=== PATIENT | female | born 1975 | race Caucasian/White ===

== ENCOUNTER 2016-12-17 20:03 | Emergency (ER) | payer MEDICARE, MEDICAID ==
[2016-12-17] MEDS ORDERED: KETOROLAC 30 MG/ML VIAL IVP ONE (21:03)
[2016-12-17 21:49] LABS: BASO % 0.6 % (0-6); GRAN % 60.9 % (47-80); HEMATOCRIT 28.4 % (35.0-47.0); HEMOGLOBIN 8.6 gm/dl (11.6-16.0); LYMPH % 30.4 % (16-45); MEAN CELL VOLUME 74.3 fl (81-97); MEAN CORPUSCULAR HEMOGLOBIN 22.5 pg (27-33); MEAN CORPUSCULAR HGB CONC 30.3 g/dl (32-36); MEAN PLATELET VOLUME 10.7 fl (7.4-10.4); MONO % 6.1 % (0-9); PLATELET COUNT 263 K/uL (130-400); RED BLOOD COUNT 3.82 M/uL (3.80-5.40); WHITE BLOOD COUNT W/O DIFF 10.6 K/uL (4.2-12.2)
[2016-12-17 22:03] LABS: ALB/GLOB RATIO 1.4 (1.1-1.8); ALKALINE PHOSPHATASE 122 U/L (38-126); ALT/SGPT 36 U/L (9-52); ANION GAP 9.3 (7-16); AST/SGOT 13 U/L (14-36); BILIRUBIN,TOTAL 0.29 mg/dL (0.2-1.3); BLOOD UREA NITROGEN 17 mg/dL (7-17); C-REACTIVE PROTEIN 1.2 mg/dL (0.0-0.9); CARBON DIOXIDE 23.7 mmol/L (22-30); CREATININE 0.9 mg/dL (0.52-1.04); EST GLOMERULAR FILTRATION RATE > 60 ml/min; GLUCOSE,RANDOM 109 mg/dL (70-110); TOTAL PROTEIN 6.8 gm/dL (6.3-8.2)
[2016-12-17 22:24] LABS: ERYTHROCYTE SEDIMENTATION RATE 30 mm/hr (0-20)
[2016-12-17] MEDS ORDERED: DIPHENHYDRAMINE HCL IV 50 MG/ML VIAL IVP ONE (22:25)
[2016-12-17] MEDS ORDERED: ASPIRIN 81 MG CHEWABLE TABLET PO ONE (22:51)
[2016-12-17] MEDS ORDERED: HYDROCODONE/APAP 5/325MG TABLET PO ONE (22:51)
--- NOTE | 2016-12-17 23:04 | Emergency Department Record ---
History of Present Illness - General Chief complaint: Lower Extremity Pain Stated complaint: RT FOOT TOES PURPLE Time Seen by Provider: 12/17/16 20:48 Source: Patient Mode of Arrival: Ambulatory Limitations: No limitations - History of Present Illness Initial comments: toes on r foot are discolored and painful. pt recently kalen dudley lupus Complaint: Extremity pain Onset/Timin -: Days(s) Location: Right, Foot History of Same: No Radiation: None Severity scale (1-10): 8 Quality: Burning Consistency: Constant Improves with: Nothing Worsens with: Walking, Weight bearing Associated Symptoms: Denies other symptoms - Related Data Home Medications Medication Instructions Recorded Confirmed Last Taken Buspirone HCl [Buspar] 15 mg PO DAILY 12/17/16 12/17/16 Unknown Dicyclomine HCl 20 mg PO QID 12/17/16 12/17/16 Unknown Fluoxetine HCl [Prozac] 10 mg PO DAILY 12/17/16 12/17/16 Unknown Hydrocodone/Acetaminophen 1 tab PO BID PRN 12/17/16 12/17/16 Unknown [Hydrocodone/Acetaminophen 7.5mg/325mg] Lisinopril/Hydrochlorothiazide 1 each PO BID 12/17/16 12/17/16 Unknown [Lisinopril-Hctz 20-12.5 mg Tab] Olanzapine [Olanzapine] 5 mg PO DAILY 12/17/16 12/17/16 Unknown Omeprazole [Omeprazole] 40 mg PO DAILY 12/17/16 12/17/16 Unknown Ondansetron HCl [Zofran] 4 mg PO ASDIR PRN 12/17/16 12/17/16 12/17/16 Pregabalin [Lyrica] 50 mg PO BID 12/17/16 12/17/16 Unknown Previous Rx's Medication Instructions Recorded Hydrocodone/Acetaminophen [Campbell 1 each PO Q6HR #7 tablet 12/17/16 5-325 Tablet] Allergies Allergy/AdvReac Type Severity Reaction Status Date / Time morphine Allergy ITCHING Verified 12/17/16 20:11 haloperidol [From Haldol] AdvReac FATIGUE Verified 12/17/16 20:11 haloperidol lactate AdvReac FATIGUE Verified 12/17/16 20:11 [From Haldol] Travel Screening - Travel/Exposure Within Last 30 Days Have you traveled within the last 30 days?: Yes Location Detail:: [place] - Travel/Exposure Within Last Year Have you traveled outside the [place] in the last year?: No - Additonal Travel Details Have you been exposed to anyone with a communicable illness?: No - Travel Symptoms Symptom Screening: None Review of Systems Reviewed: No additional complaints except as noted below Constitutional: Reports: As per HPI. Denies: Chills, Fever, Malaise, Night sweats, Weakness, Weight change Eyes: Reports: As per HPI. Denies: Eye discharge, Eye pain, Photophobia, Vision change ENT: Reports: As per HPI. Denies: Congestion, Dental pain, Ear pain, Epistaxis , Hearing loss, Throat pain Respiratory: Reports: As per HPI. Denies: Cough, Dyspnea, Hemoptysis, Stridor, Wheezes Cardiovascular: Reports: As per HPI. Denies: Arrhythmia, Chest pain, Dyspnea on exertion, Edema, Murmurs, Orthopnea, Palpitations, Paroxysmal nocturnal dyspnea, Rheumatic Fever, Syncope Endocrine: Reports: As per HPI. Denies: Fatigue, Heat or cold intolerance, Polydipsia, Polyuria Gastrointestinal: Reports: As per HPI. Denies: Abdominal pain, Constipation, Diarrhea, Hematemesis, Hematochezia, Melena, Nausea, Vomiting Genitourinary: Reports: As per HPI. Denies: Abnormal menses, Discharge, Dyspareunia, Dysuria, Frequency, Hematuria, Incontinence, Retention, Urgency Musculoskeletal: Reports: As per HPI. Denies: Arthralgia, Back pain, Gout, Joint swelling, Myalgia, Neck pain Skin: Reports: As per HPI. Denies: Bruising, Change in color, Change in hair/ nails, Lesions, Pruritus, Rash Neurological: Reports: As per HPI. Denies: Abnormal gait, Confusion, Headache, Numbness, Paresthesias, Seizure, Tingling, Tremors, Vertigo, Weakness Psychiatric: Reports: As per HPI. Denies: Anxiety, Auditory hallucinations, Depression, Homicidal thoughts, Suicidal thoughts, Visual hallucinations Hematological/Lymphatic: Reports: As per HPI. Denies: Anemia, Blood Clots, Easy bleeding, Easy bruising, Swollen glands Past Medical History - SOCIAL HISTORY Smoking Status: Light tobacco smoker (<10/day) Alcohol Use: Occasional Drug Use: Heavy Drug Use Detail:: Marijuana - RESPIRATORY Hx Respiratory Disorders: Yes Hx Asthma: Yes - CARDIOVASCULAR Hx Cardio Disorders: Yes Hx Hypertension: Yes - NEURO Hx Neuro Disorders: Yes Hx Headaches: Yes (migraines since age 18) - GI Hx GI Disorders: No - Hx Genitourinary Disorders: Yes Hx Bladder Problem: Yes - ENDOCRINE Hx Endocrine Disorders: No - MUSCULOSKELETAL Hx Musculoskeletal Disorders: Yes Hx Arthritis: Yes - PSYCH Hx Psych Problems: Yes Hx Anxiety: Yes - HEMATOLOGY/ONCOLOGY Hx Hematology/Oncology Disorders: Yes 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) Hx Blood Transfusions: Yes Hx Blood Transfusion Reaction: No Family Medical History Any Significant Family History?: No Hx Anxiety: Mother Hx Cancer: Mother, Grandparents Hx Depression: Mother Hx Diabetes: Mother, Grandparents Hx Heart Disease: Father, Mother, Grandparents Hx HTN: Father, Mother, Grandparents Hx Stroke: Father, Grandparents Physical Exam - General General Appearance: Alert, Oriented x3, Cooperative, Mild distress - Head Head exam: Normal inspection - Eye Eye exam: Normal appearance, PERRL, EOMI Pupils: Normal accommodation - ENT ENT exam: Normal exam, Mucous membranes moist, Normal external ear exam, Normal orophraynx Ear exam: Normal external inspection. negative: External canal tenderness Nasal Exam: Normal inspection. negative: Discharge, Sinus tenderness Mouth exam: Normal external inspection, Tongue normal Teeth exam: Normal inspection. negative: Dental caries Throat exam: Normal inspection. negative: Tonsillar erythema, Tonsillar exudate - Neck Neck exam: Normal inspection, Full ROM. negative: Tenderness - Respiratory Respiratory exam: Normal lung sounds bilaterally. negative: Respiratory distress - Cardiovascular Cardiovascular Exam: Regular rate, Normal rhythm, Normal heart sounds - GI/Abdominal GI/Abdominal exam: Soft, Normal bowel sounds. negative: Tenderness - Rectal Rectal exam: Deferred - exam: Deferred - Extremities Extremities exam: Normal inspection, Full ROM, Tenderness Image of Feet: 1 - discoloration and tenderness - Back Back exam: Reports: Normal inspection, Full ROM. Denies: Muscle spasm, Rash noted, Tenderness - Neurological Neurological exam: Alert, CN II-XII intact, Normal gait, Oriented X3 - Psychiatric Psychiatric exam: Normal affect, Normal mood - Skin Skin exam: Dry, Intact, Normal color, Warm Course Vital Signs 12/17/16 20:10 Temperature 98.9 F Pulse Rate [ 106 H Pulse Ox Probe] Respiratory 20 Rate Blood Pressure 132/88 [Left Arm] Pulse Ox 98 Medical Decision Making - Lab Data Result diagrams: 12/17/16 21:45 12/17/16 21:45 Lab Results 12/17/16 12/17/16 12/17/16 Range/Units 21:45 21:45 21:45 WBC 10.6 (4.2-12.2) K/uL RBC 3.82 (3.80-5.40) M/uL Hgb 8.6 L (11.6-16.0) gm/dl Hct 28.4 L (35.0-47.0) % MCV 74.3 L (81-97) fl MCH 22.5 L (27-33) pg MCHC 30.3 L (32-36) g/dl RDW 19.0 H (11.5-14.5) % Plt Count 263 (130-400) K/uL MPV 10.7 H (7.4-10.4) fl Gran % 60.9 (47-80) % Lymphocytes % 30.4 (16-45) % Monocytes % 6.1 (0-9) % Eosinophils % 2.0 (0-6) % Basophils % 0.6 (0-6) % ESR 30 H (0-20) mm/hr D-Dimer 2.48 H (0-0.59) mg/L FEU Sodium 142 (136-145) mmol/L Potassium 3.7 (3.5-5.1) mmol/L Chloride 109 H (98-107) mmol/L Carbon Dioxide 23.7 (22-30) mmol/L Anion Gap 9.3 (7-16) BUN 17 (7-17) mg/dL Creatinine 0.9 (0.52-1.04) mg/dL Estimated GFR > 60 ml/min Random Glucose 109 (70-110) mg/dL Calcium 8.5 (8.5-10.1) mg/dL Total Bilirubin 0.29 (0.2-1.3) mg/dL AST 13 L (14-36) U/L ALT 36 (9-52) U/L Alkaline Phosphatase 122 (38-126) U/L C-Reactive Protein 1.2 H (0.0-0.9) mg/dL Total Protein 6.8 (6.3-8.2) gm/dL Albumin 4.0 (3.5-5.0) gm/dL Globulin 2.8 (1.4-4.8) gm/dL Albumin/Globulin Ratio 1.4 (1.1-1.8) Disposition Disposition: Discharge Clinical Impression: Thromboangiitis obliterans Anemia Qualifiers: Anemia type: iron deficiency Iron deficiency anemia type: unspecified iron deficiency Qualified Code(s): D50.9 - Iron deficiency anemia, unspecified Disposition: Home, Self-Care Condition: (2) Stable Instructions: Peripheral Vascular Disease (ED), Anemia (ED) Additional Instructions: follow 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 return sooner if worse. moist heat to feet. take aspirin 81mg a day Prescriptions: Hydrocodone/Acetaminophen [Campbell 5-325 Tablet] 1 each PO Q6HR #7 tablet Forms: Patient Portal Access Quality - Quality Measures Quality Measures: N/A - Blood Pressure Screening Does Patient Have Any of the Following: No Blood Pressure Classification: Pre-Hypertensive BP Reading Systolic Measurement: 132 Diastolic Measurement: 88 Screening for High Blood Pressure: < Pre-Hypertensive BP, F/U Documented > [ G8950] Pre-Hypertensive Follow-up Interventions: Follow-up with rescreen every year.
--- NOTE | 2016-12-18 12:40 | RADIOLOGY REPORT ---
EXAM: RIGHT FOOT COMPLETE HISTORY: DIFFUSE RIGHT FOOT PAIN ESPECIALLY IN THE FIRST AND FOURTH DIGITS. NO KNOWN INJURY. TECHNIQUE: Three views of the right foot were obtained. Comparison: None. Encounter: Initial. FINDINGS: There is normal bone mineralization. No acute fracture, dislocation , or destructive bone lesion is seen. The articular relations are maintained. A small plantar calcaneal spur is present. No suspicious focal soft tissue abnormality. IMPRESSION: NO ACUTE BONE NOR JOINT ABNORMALITY. SMALL PLANTAR CALCANEAL SPUR. JOB NUMBER: [id number] [facility]
== END 2016-12-17 23:21 | disposition home or self-care (01) ==
LOC: ER 20:03
DX: I73.1 Thromboangiitis obliterans [Buerger's disease] (principal); M79.671 Pain in right foot; D50.9 Iron deficiency anemia, unspecified; I10 Essential (primary) hypertension; F17.210 Nicotine dependence, cigarettes, uncomplicated
CPT/HCPCS: 99284 ×2; 96374; 96375; 85025; 85651; 86140; 80053; 85379; 73630; J1885; J1200

== ENCOUNTER 2018-01-02 14:55 | Emergency (ER) | payer MEDICARE, MEDICAID ==
[2018-01-02] MEDS ORDERED: ACETAMINOPHEN 325 MG TAB PO ONE (15:09)
--- NOTE | 2018-01-02 15:16 | Emergency Department Record ---
History of Present Illness - General Chief complaint: ENT Stated complaint: SORE THROAT, SLEEPS ALL THE TIME Time Seen by Provider: 01/02/18 15:06 Source: Patient Mode of Arrival: Ambulatory Limitations: No limitations - History of Present Illness Initial comments: The patient is here for a ST for 2 days. She also feels fatigued for a few days and has been sleeping a lot. The patient denies any fever, chills, vomiting, diarrhea, or HERNANDEZ's. complaint: Sore throat Onset/Timin -: Days(s) Location: Throat Severity: Moderate Severity scale (1-10): 8 Consistency: Constant Improves with: None Worsens with: Swallowing Associated Symptoms: Sore throat - Related Data Previous Rx's Medication Instructions Recorded Potassium Chloride 20 meq PO DAILY #7 [email or web address].prt 01/02/18 Allergies Allergy/AdvReac Type Severity Reaction Status Date / Time morphine Allergy ITCHING Verified 01/02/18 14:59 haloperidol [From Haldol] AdvReac FATIGUE Verified 01/02/18 14:59 haloperidol lactate AdvReac FATIGUE Verified 01/02/18 14:59 [From Haldol] Travel Screening - Travel/Exposure Within Last 30 Days Have you traveled within the last 30 days?: No - Travel/Exposure Within Last Year Have you traveled outside the [place] in the last year?: No - Additonal Travel Details Have you been exposed to anyone with a communicable illness?: No - Travel Symptoms Symptom Screening: None Review of Systems Constitutional: Reports: Malaise. Denies: Chills, Fever Eyes: Denies: Eye discharge ENT: Denies: Congestion Respiratory: Denies: Cough, Dyspnea Past Medical History - SOCIAL HISTORY Smoking Status: Light tobacco smoker (<10/day) Alcohol Use: Occasional Drug Use: None - RESPIRATORY Hx Respiratory Disorders: Yes Hx Asthma: Yes - CARDIOVASCULAR Hx Cardio Disorders: Yes Hx Hypertension: Yes - NEURO Hx Neuro Disorders: Yes Hx Headaches: Yes (migraines since age 18) - GI Hx GI Disorders: No - Hx Genitourinary Disorders: Yes Hx Bladder Problem: Yes - ENDOCRINE Hx Endocrine Disorders: No - MUSCULOSKELETAL Hx Musculoskeletal Disorders: Yes Hx Arthritis: Yes - PSYCH Hx Psych Problems: Yes Hx Anxiety: Yes - HEMATOLOGY/ONCOLOGY Hx Hematology/Oncology Disorders: Yes 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) Hx Blood Transfusions: Yes Hx Blood Transfusion Reaction: No Family Medical History Any Significant Family History?: Yes Hx Anxiety: Mother Hx Cancer: Mother, Grandparents Hx Depression: Mother Hx Diabetes: Mother, Grandparents Hx Heart Disease: Father, Mother, Grandparents Hx HTN: Father, Mother, Grandparents Hx Stroke: Father, Grandparents Physical Exam - General General Appearance: Alert, Oriented x3, Cooperative, No acute distress - Head Head exam: Atraumatic, Normocephalic, Normal inspection - Eye Eye exam: Normal appearance, PERRL, EOMI - ENT ENT exam: Normal exam, Mucous membranes moist, Normal external ear exam, Normal orophraynx, TM's normal bilaterally Throat exam: Normal inspection. negative: Tonsillar erythema, Tonsillomegaly, Tonsillar exudate, R peritonsillar mass, L peritonsillar mass - Neck Neck exam: Normal inspection, Full ROM. negative: Lymphadenopathy, Meningismus , Tenderness - Respiratory Respiratory exam: Normal lung sounds bilaterally. negative: Respiratory distress - Cardiovascular Cardiovascular Exam: Regular rate, Normal rhythm, Normal heart sounds - GI/Abdominal GI/Abdominal exam: Soft, Normal bowel sounds. negative: Tenderness - Extremities Extremities exam: Normal inspection, Full ROM, Normal capillary refill. negative: Tenderness - Back Back exam: Reports: Normal inspection - Neurological Neurological exam: Alert, Normal gait, Oriented X3. negative: Abnormal gait, Motor sensory deficit Course Vital Signs 01/02/18 15:01 Temperature 98.2 F Pulse Rate 98 H Respiratory 20 Rate Blood Pressure 116/93 Pulse Ox 96 - Reevaluation(s) Reevaluation #1: The patient is doing very well at this time. I did explain to her that she clearly is not anemic but her potassium is low and that could be why she is fatigued. We will discharge her on oral potassium and have her F/U with her PCP next week. 01/02/18 16:27 Medical Decision Making - Data Complexity MDM Data: Labs Ordered and/or Reviewed - Lab Data Result diagrams: 01/02/18 15:40 01/02/18 15:40 Disposition Disposition: Discharge Clinical Impression: Pharyngitis Qualifiers: Pharyngitis/tonsillitis etiology: unspecified etiology Qualified Code(s): J02.9 - Acute pharyngitis, unspecified Disposition: Home, Self-Care Condition: (2) Stable Instructions: Hypokalemia (ED) Additional Instructions: Please take the potassium pills as directed and see your family doctor next week for recheck. Return to the ER for any worsening symptoms. Please do not take your Lomotil while taking the potassium. Prescriptions: Potassium Chloride 20 meq PO DAILY #7 [email or web address].prt Forms: Patient Portal Access Time of Disposition: 16:29 Quality - Quality Measures Quality Measures: N/A, Headache (All Ages) - Headache: Neuroimaging Quality Measure: Measure #419: Overuse of Neuroimaging ICD10 Codes Entered: Yes View Detail: Yes Neurological Exam: Patient had a normal neurological exam. [G9535] Headache: Use of Neuroimaging: < CTA, CT, MRA or MRI was NOT ordered > [G9534] - Blood Pressure Screening View Details: Yes Does Patient Have Any of the Following: No Blood Pressure Classification: Hypertensive Reading Systolic Measurement: 116 Diastolic Measurement: 93 Screening for High Blood Pressure: < First Hypertensive BP, F/U Documented > [ G8950] First Hypertensive Follow-up Interventions: Referral to alternative/primary care provider.
[2018-01-02 15:50] LABS: BASO % 0.5 % (0-6); GRAN % 61.3 % (47-80); HEMATOCRIT 39.8 % (35.0-47.0); HEMOGLOBIN 13.1 gm/dl (11.6-16.0); LYMPH % 30.7 % (16-45); MEAN CELL VOLUME 80.1 fl (81-97); MEAN CORPUSCULAR HEMOGLOBIN 26.4 pg (27-33); MEAN CORPUSCULAR HGB CONC 32.9 g/dl (32-36); MEAN PLATELET VOLUME 10.3 fl (7.4-10.4); MONO % 5.5 % (0-9); PLATELET COUNT 399 K/uL (130-400); RED BLOOD COUNT 4.97 M/uL (3.80-5.40); RED CELL DISTRIBUTION WIDTH 17.1 % (11.5-14.5); WHITE BLOOD COUNT W/O DIFF 12.2 K/uL (4.2-12.2)
[2018-01-02 16:03] LABS: BLOOD UREA NITROGEN 14 mg/dL (6-20); CREATININE 0.9 mg/dL (0.5-0.9); EST GLOMERULAR FILTRATION RATE > 60 mL/min
[2018-01-02 16:05] LABS: GLUCOSE,RANDOM 116 mg/dL (74-109)
[2018-01-02] MEDS ORDERED: POTASSIUM CHLORIDE 20 MEQ TABLET PO ONE (16:12)
[2018-01-02 16:13] LABS: URINE APPEARANCE CLEAR; URINE BILIRUBIN NEGATIVE (NEGATIVE); URINE BLOOD NEGATIVE (NEGATIVE); URINE COLOR YELLOW; URINE GLUCOSE (UA) NEGATIVE (NEGATIVE); URINE KETONE NEGATIVE (NEGATIVE); URINE LEUKOCYTE ESTERASE NEGATIVE (NEGATIVE); URINE NITRITE NEGATIVE (NEGATIVE); URINE PROTEIN NEGATIVE (NEGATIVE); URINE UROBILINOGEN 0.2 E.U./dL (0.20 - 1.00)
== END 2018-01-02 16:40 | disposition home or self-care (01) ==
LOC: ER 14:55
DX: J02.9 Acute pharyngitis, unspecified (principal); E87.6 Hypokalemia; R53.83 Other fatigue; I10 Essential (primary) hypertension; F17.210 Nicotine dependence, cigarettes, uncomplicated
CPT/HCPCS: 80048; 81003; 85025; 87880; 99283

== ENCOUNTER 2018-03-17 13:04 | Emergency (ER) | payer MEDICARE, MEDICAID | END 2018-03-17 13:46 | disposition left against medical advice (07) | LOC: ER 13:04 | DX: Z53.20 Procedure and treatment not carried out because of patient's decision for unspecified reasons (principal) ==

== ENCOUNTER 2018-05-29 16:53 | Emergency (ER) | payer MEDICARE, MEDICAID ==
--- NOTE | 2018-05-29 17:20 | Emergency Department Record ---
History of Present Illness - General Chief complaint: Pain Stated complaint: PAIN IN LEFT JAW Time Seen by Provider: 05/29/18 17:14 Source: Patient Mode of Arrival: Ambulatory Limitations: No limitations - History of Present Illness Initial comments: Pt with complaint of painful swelling to the left jaw. Onset today, was fine yesterday. Pt has full upper and lower dentures that are NOT new. No problems with denture. No fever, no trauma, no sore throat. No hx similar. Onset/Timin -: Hour(s) Severity scale (1-10): 8 Quality: Sharp, Stabbing Improves with: Nothing Worsens with: Nothing - Related Data Previous Rx's Medication Instructions Recorded Amoxicillin 500Mg Capsule [Amoxil] 1,000 mg PO BID 7 Days #28 tab 05/29/18 Allergies Allergy/AdvReac Type Severity Reaction Status Date / Time morphine Allergy ITCHING Verified 05/29/18 17:02 haloperidol [From Haldol] AdvReac FATIGUE Verified 05/29/18 17:02 haloperidol lactate AdvReac FATIGUE Verified 05/29/18 17:02 [From Haldol] Travel Screening - Travel/Exposure Within Last 30 Days Have you traveled within the last 30 days?: No - Travel/Exposure Within Last Year Have you traveled outside the [place] in the last year?: No - Additonal Travel Details Have you been exposed to anyone with a communicable illness?: No - Travel Symptoms Symptom Screening: None Review of Systems Constitutional: Denies: Chills, Fever, Night sweats Eyes: Denies: Eye discharge, Photophobia ENT: Denies: Congestion, Ear pain, Hearing loss, Throat pain Respiratory: Denies: Cough, Dyspnea Cardiovascular: Denies: Arrhythmia, Chest pain Endocrine: Denies: Fatigue Gastrointestinal: Denies: Abdominal pain, Nausea, Vomiting Musculoskeletal: Denies: Arthralgia, Back pain Skin: Denies: Rash Neurological: Denies: Abnormal gait, Headache, Weakness Psychiatric: Denies: Anxiety Hematological/Lymphatic: Denies: Anemia Past Medical History - SOCIAL HISTORY Smoking Status: Light tobacco smoker (<10/day) Alcohol Use: Occasional Drug Use: Heavy Drug Use Detail:: Marijuana - RESPIRATORY Hx Respiratory Disorders: Yes Hx Asthma: Yes - CARDIOVASCULAR Hx Cardio Disorders: Yes Hx Hypertension: Yes - NEURO Hx Neuro Disorders: Yes Hx Headaches: Yes (migraines since age 18) - GI Hx GI Disorders: No - Hx Genitourinary Disorders: Yes Hx Bladder Problem: Yes - ENDOCRINE Hx Endocrine Disorders: No - MUSCULOSKELETAL Hx Musculoskeletal Disorders: Yes Hx Arthritis: Yes - PSYCH Hx Psych Problems: Yes Hx Anxiety: Yes - HEMATOLOGY/ONCOLOGY Hx Hematology/Oncology Disorders: Yes 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) Hx Blood Transfusions: Yes Hx Blood Transfusion Reaction: No Family Medical History Any Significant Family History?: No Hx Anxiety: Mother Hx Cancer: Mother, Grandparents Hx Depression: Mother Hx Diabetes: Mother, Grandparents Hx Heart Disease: Father, Mother, Grandparents Hx HTN: Father, Mother, Grandparents Hx Stroke: Father, Grandparents Physical Exam - General General Appearance: Alert, Oriented x3, Cooperative, Mild distress - Head Head exam: Atraumatic - Eye Eye exam: Normal appearance, PERRL - ENT ENT exam: Mucous membranes moist, Normal external ear exam, Normal orophraynx, TM's normal bilaterally Nasal Exam: Normal inspection Mouth exam: Tongue normal. negative: Muffled voice, Tongue elevation Teeth exam: Other (no teeth upper or lower, no gum irritation or abscess, salivary ducts without erythema or stone seen. ) Throat exam: Normal inspection, Other (left submandibular salivary gland swollen and tender, no erythema. ) - Neck Neck exam: Normal inspection, Full ROM. negative: Lymphadenopathy, Meningismus , Tenderness - Respiratory Respiratory exam: Normal lung sounds bilaterally. negative: Rhonchi, Wheezes - Cardiovascular Cardiovascular Exam: Regular rate, Normal rhythm, Normal heart sounds. negative : Tachycardia - GI/Abdominal GI/Abdominal exam: Soft, Normal bowel sounds. negative: Tenderness - Extremities Extremities exam: Normal inspection - Back Back exam: Reports: Normal inspection - Neurological Neurological exam: Alert, Normal gait, Oriented X3 - Psychiatric Psychiatric exam: Normal affect - Skin Skin exam: Normal color. negative: Rash Course Vital Signs 05/29/18 16:56 Temperature 98.2 F Pulse Rate 89 Respiratory 16 Rate Blood Pressure 148/103 Pulse Ox 98 - Reevaluation(s) Reevaluation #1: 05/29/18 17:23 seen and exam. Discussed care and plan. pt understands and agrees. Disposition Disposition: Discharge Clinical Impression: Sialoadenitis of submandibular gland Disposition: Home, Self-Care Condition: (2) Stable Instructions: Sialoadenitis (ED) Additional Instructions: Warm compress to area. Lemon drops as discussed. Take the Amox as instructed. Return to ED if fever or increased pain. Family doctor follow in 3 days Prescriptions: Amoxicillin 500Mg Capsule [Amoxil] 1,000 mg PO BID 7 Days #28 tab Quality - Quality Measures Quality Measures: N/A - Headache: Neuroimaging ICD10 Codes Entered: Yes - Blood Pressure Screening Does Patient Have Any of the Following: No Blood Pressure Classification: Hypertensive Reading Systolic Measurement: 148 Diastolic Measurement: 103 Screening for High Blood Pressure: < Pre-Hypertensive BP, F/U Documented > [ G8950] Pre-Hypertensive Follow-up Interventions: Follow-up with rescreen every year.
== END 2018-05-29 19:00 | disposition home or self-care (01) ==
LOC: ER 16:53
DX: K11.21 Acute sialoadenitis (principal); I10 Essential (primary) hypertension; F17.210 Nicotine dependence, cigarettes, uncomplicated
CPT/HCPCS: 99283

== ENCOUNTER 2018-08-21 10:36 | Observation (INO) | payer MEDICARE, MEDICAID ==
--- NOTE | 2018-08-21 11:05 | Emergency Department Record ---
History of Present Illness - General Chief Complaint: Chest Pain Stated Complaint: CHEST DISCOMFORT/SENT BY DR Concepcion Seen by Provider: 08/21/18 10:54 Source: Patient Mode of Arrival: Ambulatory Limitations: No limitations - History of Present Illness Initial Comments: The patient is here due to L upper chest pain for 2 days. The pain is sharp and stabbing and located in the L upper chest. It intermittently radiates to the L shoulder. The patient states the pain is worse with twisting and bending. She denies any SOB, JULIA, pleuritic pain, nausea, vomiting, or lightheadedness with the pain but she has been coughing. There has been no fever or chills. MD Complaint: Chest pain Onset/Timin -: Days(s) Onset: During rest, Other Pain Location: Left chest Pain Radiation: LUE Severity: Moderate Severity scale (1-10): 6 Quality: Sharp Consistency: Constant Improves With: Nothing Worsens With: Nothing Other Symptoms: Other Treatments Prior to Arrival: None - Related Data Allergies Allergy/AdvReac Type Severity Reaction Status Date / Time morphine Allergy ITCHING Verified 08/21/18 10:53 haloperidol [From Haldol] AdvReac FATIGUE Verified 08/21/18 10:53 haloperidol lactate AdvReac FATIGUE Verified 08/21/18 10:53 [From Haldol] Travel Screening - Travel/Exposure Within Last 30 Days Have you traveled within the last 30 days?: No - Travel/Exposure Within Last Year Have you traveled outside the [place] in the last year?: No - Additonal Travel Details Have you been exposed to anyone with a communicable illness?: No - Travel Symptoms Symptom Screening: None Review of Systems Constitutional: Denies: Chills, Fever Eyes: Denies: Eye discharge ENT: Denies: Congestion Respiratory: Denies: Cough, Dyspnea Cardiovascular: Denies: Arrhythmia Endocrine: Denies: Fatigue Gastrointestinal: Denies: Abdominal pain, Nausea Genitourinary: Denies: Dysuria Musculoskeletal: Denies: Arthralgia Past Medical History - SOCIAL HISTORY Smoking Status: Light tobacco smoker (<10/day) Alcohol Use: Occasional Drug Use: None - RESPIRATORY Hx Respiratory Disorders: Yes Hx Asthma: Yes - CARDIOVASCULAR Hx Cardio Disorders: Yes Hx Hypertension: Yes - NEURO Hx Neuro Disorders: Yes Hx Headaches: Yes (migraines since age 18) - GI Hx GI Disorders: No - Hx Genitourinary Disorders: Yes Hx Bladder Problem: Yes - ENDOCRINE Hx Endocrine Disorders: No - MUSCULOSKELETAL Hx Musculoskeletal Disorders: Yes Hx Arthritis: Yes - PSYCH Hx Psych Problems: Yes Hx Anxiety: Yes - HEMATOLOGY/ONCOLOGY Hx Hematology/Oncology Disorders: Yes 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 negative: Tonsillar erythema, Tonsillar exudate - Neck Neck exam: Normal inspection, Full ROM. negative: Lymphadenopathy, Meningismus, Tenderness - Respiratory Respiratory exam: Normal lung sounds bilaterally, Chest wall tenderness (The pain is 100% reproducible with palpation to the L upper chest wall.). negative: Respiratory distress - Cardiovascular Cardiovascular Exam: Regular rate, Normal rhythm, Normal heart sounds - GI/Abdominal GI/Abdominal exam: Soft, Normal bowel sounds. negative: Tenderness - Extremities Extremities exam: Normal inspection, Full ROM, Normal capillary refill. negative: Tenderness Image of Full Body: 1 - Area of pain and tenderness. - Back Back exam: Reports: Normal inspection - Neurological Neurological exam: Alert. negative: Motor sensory deficit Course Vital Signs 08/21/18 10:39 Temperature 98.8 F Pulse Rate 86 Respiratory 20 Rate Blood Pressure 113/77 Pulse Ox 95 - Reevaluation(s) Reevaluation #1: The patient is resting comfortably but denies any improvement with the Toradol and Ofirmiv. She denies any new issues. 08/21/18 14:00 Reevaluation #2: The patient is doing better at this time. Her is improving with the Dilaudid and I did discuss the xray results with her. It appears she does have pneumonia and we will keep her in the hospital overnight for IV Abx's. 08/21/18 15:56 Reevaluation #3: I did discuss the case with Graciela ([employer]) and she does accept the admission for Dr. Park. 08/21/18 16:19 Medical Decision Making - Data Complexity MDM Data: Labs Ordered and/or Reviewed, X-Ray Ordered and/or Reviewed, EKG Ordered and/or Reviewed - Lab Data Result diagrams: 08/21/18 11:25 08/21/18 11:25 - EKG Data -: EKG Interpreted by Me EKG: No Acute Changes, Unchanged From Previous - Radiology Data Radiology results: Report reviewed (CXR: Bilateral infiltrates. Chest CT: Neg for PE, bilateral infiltrates.) Disposition Disposition: Admit Clinical Impression: Pneumonia Qualifiers: Pneumonia type: due to unspecified organism Laterality: bilateral Lung location: unspecified part of lung Qualified Code(s): J18.9 - Pneumonia, unspecified organism Disposition: Still a Patient at [facility] [place] Decision to Admit: Admit from ER Decision to Admit Date: 08/21/18 Decision to Admit Time: 16:19 Accepting Physician: Vivian Time Discussed w/Accepting Physician: 16:19 Condition: (2) Stable Forms: Patient Portal Access Time of Disposition: 16:19 Quality - Quality Measures Quality Measures: Headache (All Ages) - Headache: Neuroimaging Quality Measure: Measure #419: Overuse of Neuroimaging ICD10 Codes Entered: Yes View Detail: Yes Neurological Exam: Patient had a normal neurological exam. [G9535] Headache: Use of Neuroimaging: < CTA, CT, MRA or MRI was NOT ordered > [G9534] - Blood Pressure Screening View Details: Yes Does Patient Have Any of the Following: No Blood Pressure Classification: Normal BP Reading Systolic Measurement: 113 Diastolic Measurement: 77 Screening for High Blood Pressure: < Normal BP, F/U Not Required > [G8783]
[2018-08-21 11:42] LABS: ABSOLUTE NEUTROPHIL COUNT 12.71; BASO % 0.2 % (0-6); EOS % 0.5 % (0-6); GRAN % 76.6 % (47-80); HEMATOCRIT 34.4 % (35.0-47.0); HEMOGLOBIN 10.9 gm/dl (11.6-16.0); LYMPH % 18.2 % (16-45); MEAN CELL VOLUME 81.9 fl (81-97); MEAN CORPUSCULAR HGB CONC 31.7 g/dl (32-36); MEAN PLATELET VOLUME 11.3 fl (7.4-10.4); MONO % 4.5 % (0-9); PLATELET COUNT 265 K/uL (130-400); RED CELL DISTRIBUTION WIDTH 15.8 % (11.5-14.5); WHITE BLOOD COUNT W/O DIFF 16.6 K/uL (4.2-12.2)
[2018-08-21 11:46] LABS: MEAN CORPUSCULAR HEMOGLOBIN 25.9 pg (27-33)
[2018-08-21 11:56] LABS: BLOOD UREA NITROGEN 9 mg/dL (6-20); CREATININE 0.8 mg/dL (0.5-0.9); EST GLOMERULAR FILTRATION RATE > 60 mL/min
[2018-08-21 11:59] LABS: GLUCOSE,RANDOM 92 mg/dL (74-109)
[2018-08-21 12:02] LABS: CREATINE PHOSPHOKINASE 54 U/L (26-192)
[2018-08-21 12:03] LABS: CKMB < 1.0 ng/mL (<3.77)
[2018-08-21] MEDS ORDERED: KETOROLAC 30 MG/ML VIAL IVP ONE (12:08)
[2018-08-21] MEDS ORDERED: ACETAMINOPHEN 1,000 MG/100 ML BTL IVPB ONE (13:34)
[2018-08-21] MEDS ORDERED: HYDROMORPHONE HCL 2 MG/ML VIAL IVP ONE ×2 (14:06→15:02)
[2018-08-21] MEDS ORDERED: AZITHROMYCIN 500 MG in 0.9 % SODIUM CHLORIDE 250ML 250 ML IVPB ONE (15:49)
[2018-08-21] MEDS ORDERED: TRAMADOL HCL 50 MG TABLET PO ONE (16:18)
[2018-08-21] MEDS: CEFTRIAXONE 1GM/50ML BAG 1 GM/50 ML BAG IVPB ONE (16:23)
[2018-08-21] MEDS ORDERED: CEFTRIAXONE SODIUM 1 GM in 0.9 % SODIUM CHLORIDE 100ML 100 ML IVPB SCH (17:07)
[2018-08-21] MEDS ORDERED: ACETAMINOPHEN 325 MG TAB PO PRN (17:07)
[2018-08-21] MEDS ORDERED: IPRATROPIUM/ALBUTEROL (0.5MG/3MG) NEB INH PRN (17:07)
[2018-08-21] MEDS: HYDROCODONE/APAP 7.5/325MG TABLET PO PRN (17:33)
[2018-08-21] MEDS: BUSPIRONE 5 MG TABLET PO SCH (17:36)
[2018-08-21] MEDS: HYDROMORPHONE HCL 2 MG/ML VIAL IVP PRN ×2 (18:26→22:41)
[2018-08-21] MEDS ORDERED: PREGABALIN 50 MG CAPSULE PO SCH (22:00)
[2018-08-21] MEDS: PREGABALIN 50 MG CAPSULE PO SCH (22:32)
[2018-08-21] MEDS: DICYCLOMINE HCL 10 MG CAPSULE PO SCH (22:33)
[2018-08-21] MEDS ORDERED: CALCIUM CARBONATE 500 MG TAB.CHEW PO PRN (23:51)
[2018-08-22] MEDS ORDERED: CEFTRIAXONE SODIUM 1 GM in 0.9 % SODIUM CHLORIDE 100ML 100 ML IVPB SCH (04:00)
[2018-08-22] MEDS: HYDROMORPHONE HCL 2 MG/ML VIAL IVP PRN ×3 (05:09→12:20)
[2018-08-22 06:49] LABS: ABSOLUTE NEUTROPHIL COUNT 3.31; BASO % 0.6 % (0-6); EOS % 2.4 % (0-6); GRAN % 49.5 % (47-80); HEMATOCRIT 33.5 % (35.0-47.0); HEMOGLOBIN 10.2 gm/dl (11.6-16.0); LYMPH % 41.8 % (16-45); MEAN CELL VOLUME 83.3 fl (81-97); MEAN CORPUSCULAR HGB CONC 30.4 g/dl (32-36); MONO % 5.7 % (0-9); PLATELET COUNT 242 K/uL (130-400); RED BLOOD COUNT 4.02 M/uL (3.80-5.40); RED CELL DISTRIBUTION WIDTH 15.9 % (11.5-14.5); WHITE BLOOD COUNT W/O DIFF 6.7 K/uL (4.2-12.2)
[2018-08-22] MEDS: DICYCLOMINE HCL 10 MG CAPSULE PO SCH ×2 (06:52→12:20)
[2018-08-22] MEDS: HYDROCODONE/APAP 7.5/325MG TABLET PO PRN (06:52)
[2018-08-22 06:57] LABS: MEAN CORPUSCULAR HEMOGLOBIN 25.3 pg (27-33)
[2018-08-22] MEDS ORDERED: PANTOPRAZOLE SODIUM 40 MG TABLET PO SCH (07:00)
--- NOTE | 2018-08-22 07:42 | RADIOLOGY REPORT ---
EXAM: CHEST, TWO VIEWS HISTORY: CHEST PAIN FOR TWO DAYS. TECHNIQUE: Two views of the chest were obtained. Comparison: None. FINDINGS: The cardiac silhouette is within normal size limits. Patchy opacities in the right perihilar region, right lung base, and left perihilar region. No significant pleural fluid collection. No pneumothorax. IMPRESSION: PATCHY BILATERAL PULMONARY OPACITIES, SUSPICIOUS FOR PNEUMONIA. JOB NUMBER: [id number] MTDD
--- NOTE | 2018-08-22 07:48 | CT ANGIOGRAM REPORT ---
EXAM: CT ANGIOGRAM OF THE CHEST HISTORY: CHEST PAIN FOR TWO DAYS. LEUKOCYTOSIS. TECHNIQUE: CT angiogram of the chest was performed with 90 ml Omnipaque 350 intravenous contrast. Additional maximum intensity projection images were created on an independent workstation. Comparison: Chest radiograph 08/21/18. FINDINGS: The central airways are patent. No pulmonary artery filling defects are seen to suggest embolism. No evidence of thoracic aortic aneurysm or dissection. No pericardial effusion. Mildly enlarged right hilar and subcarinal lymph nodes, measuring up to 1.5 cm in short axis diameter. Diffuse bilateral nodular consolidative and ground glass parenchymal opacities in both lungs. No pleural effusion or pneumothorax. Small hiatal hernia. Post surgical changes in the proximal stomach. Limited evaluation of the osseous structures with CTA protocol. No definite acute osseous findings. IMPRESSION: 1. NO EVIDENCE OF PULMONARY EMBOLISM. 2. DIFFUSE MULTIFOCAL PULMONARY CONSOLIDATION, SUGGESTIVE OF MULTIFOCAL PNEUMONIA. 3. MILDLY ENLARGED MEDIASTINAL AND RIGHT HILAR LYMPH NODES; NONSPECIFIC, MAY BE REACTIVE. JOB NUMBER: [id number] [facility]
[2018-08-22] MEDS ORDERED: LISINOPRIL 20 MG TABLET PO SCH (10:00)
[2018-08-22] MEDS ORDERED: AMLODIPINE BESYLATE 5MG TAB PO SCH (10:00)
[2018-08-22] MEDS ORDERED: FLUOXETINE HCL 10 MG CAPSULE PO SCH (10:00)
[2018-08-22] MEDS ORDERED: HYDROCHLOROTHIAZIDE 12.5 MG CAPSULE PO SCH (10:00)
[2018-08-22] MEDS ORDERED: OLANZAPINE 5MG TABLET PO SCH (10:00)
[2018-08-22] MEDS ORDERED: BREO (FLUTICASONE/VILANTEROL) 100MCG/25MCG INHALER INH SCH (10:00)
[2018-08-22] MEDS: PREGABALIN 50 MG CAPSULE PO SCH (10:00)
[2018-08-22] MEDS: BUSPIRONE 5 MG TABLET PO SCH (10:01)
[2018-08-22] MEDS ORDERED: TRAMADOL HCL 50 MG TABLET PO PRN (10:05)
--- NOTE | 2018-08-22 11:37 | History & Physical ---
History of Present Illness - Date of Service Date of Service for History & Physical: 08/22/18 - History of Present Illness Admitting Diagnosis: 1. Acute Pneumonia History of Present Illness: 43 year old female patient presents to ED for evaluation of left-sided chest pain intermittent for 2 weeks and increased falls x 2 weeks. Patient reports a sharp pain in the left-upper chest that is worse with coughing or movement. Denies noting any relieving factors, denies noting any injury. Patient reports occasional cough but denies SOB, JULIA, nausea, vomiting, abdominal pain, or fevers. Patient is a poor historian. Past medical history includes COPD and current smoker, fibromyalgia, and chronic pain. PCP: Dr. Jamel Arango ED Course: Temp 98.8F, HR 86, RR 20, BP 113/77, Pulse ox 95% WBC 16.6, trop neg x 2, D-dimer 3.55, ProBNP 493 CXR: patchy bilateral pulmonary opacities suspicious for PNA CTA Chest: No PE, multifocal PNA 08/22/18: Patient A&O x 4, resting comfortably in bed. Patient reports no shortness of breath or difficulty breathing. Reports continued left-sided upper chest pain that is only relieved by Dilaudid. Denies any relief from Toradol or [place] at this time. Will trial Ultram. VS remains stable, remains on RA. WBC has improved, afebrile throughout the night. Travel Screening - Travel/Exposure Within Last 30 Days Have you traveled within the last 30 days?: No - Travel/Exposure Within Last Year Have you traveled outside the [place] in the last year?: No - Additonal Travel Details Have you been exposed to anyone with a communicable illness?: No - Travel Symptoms Symptom Screening: None Review of Systems Reviewed: No additional complaints except as noted below Constitutional: Reports: Weakness. Denies: Chills, Fever Eyes: Denies: Eye discharge ENT: Denies: Congestion Respiratory: Reports: Cough. Denies: Dyspnea Cardiovascular: Denies: Arrhythmia Endocrine: Denies: Fatigue Gastrointestinal: Denies: Abdominal pain, Nausea Genitourinary: Denies: Dysuria Musculoskeletal: Denies: Arthralgia Past Medical History - SOCIAL HISTORY Smoking Status: Light tobacco smoker (<10/day) - RESPIRATORY Hx Respiratory Disorders: Yes Hx Asthma: Yes - CARDIOVASCULAR Hx Cardio Disorders: Yes Hx Hypertension: Yes - NEURO Hx Neuro Disorders: Yes Hx Headaches: Yes (migraines since age 18) - GI Hx GI Disorders: No - Hx Genitourinary Disorders: Yes Hx Bladder Problem: Yes - ENDOCRINE Hx Endocrine Disorders: No - MUSCULOSKELETAL Hx Musculoskeletal Disorders: Yes Hx Arthritis: Yes - PSYCH Hx Psych Problems: Yes Hx Anxiety: Yes - HEMATOLOGY/ONCOLOGY Hx Hematology/Oncology Disorders: Yes 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) Hx Blood Transfusions: Yes Hx Blood Transfusion Reaction: No Family Medical History Any Significant Family History?: No Hx Anxiety: Mother Hx Cancer: Mother, Grandparents Hx Depression: Mother Hx Diabetes: Mother, Grandparents Hx Heart Disease: Father, Mother, Grandparents Hx HTN: Father, Mother, Grandparents Hx Stroke: Father, Grandparents H&P Meds/Allergies - Allergies Allergies: Allergies Allergy/AdvReac Type Severity Reaction Status Date / Time morphine Allergy ITCHING Verified 08/21/18 10:53 haloperidol [From Haldol] AdvReac FATIGUE Verified 08/21/18 10:53 haloperidol lactate AdvReac FATIGUE Verified 08/21/18 10:53 [From Haldol] - Home Medications Home Medications Medication Instructions Recorded Confirmed Last Taken Fluoxetine HCl 20 mg PO DAILY 08/22/18 08/22/18 Unknown Pregabalin [Lyrica] 150 mg PO BID 08/22/18 08/22/18 Unknown - Active Medications Active Medications: Current Medications Acetaminophen (Tylenol 325mg) 650 mg PO Q6H PRN PRN Reason: PAIN - MILD(1-4)/FEVER Hydrocodone Bitart/Acetaminophen ([place] 7.5mg/325mg) 1 each PO BID PRN PRN Reason: Pain - General Last Admin: 08/22/18 06:52 Dose: 1 each Documented by: Albuterol/Ipratropium (Duoneb) 3 ml INH RESP.Q4H PRN PRN Reason: WHEEZING Last Admin: 08/22/18 00:05 Dose: 3 ml Documented by: Amlodipine Besylate (Norvasc) 10 mg PO DAILY [facility] Last Admin: 08/22/18 10:02 Dose: 10 mg Documented by: Buspirone HCl (Buspar) 15 mg PO DAILY [facility] Last Admin: 08/22/18 10:01 Dose: 15 mg Documented by: Calcium Carbonate/Glycine (Tums) 500 mg PO Q4H PRN PRN Reason: GI UPSET Last Admin: 08/21/18 23:55 Dose: 500 mg Documented by: Dicyclomine HCl (Bentyl) 20 mg PO QIDACHS [facility] Last Admin: 08/22/18 06:52 Dose: 20 mg Documented by: Fluoxetine HCl (Prozac) 10 mg PO DAILY [facility] Last Admin: 08/22/18 10:01 Dose: 10 mg Documented by: Hydrochlorothiazide (Hctz 12.5mg) 12.5 mg PO BID [facility] Last Admin: 08/22/18 10:00 Dose: 12.5 mg Documented by: Hydromorphone HCl (Dilaudid) 0.5 mg IVP Q4H PRN PRN Reason: PAIN - MILD TO MODERATE (1-7) Last Admin: 08/22/18 08:06 Dose: 0.5 mg Documented by: Azithromycin 500 mg/ Sodium (Chloride) 250 mls @ 250 mls/hr IVPB Q24H [facility] Stop: 08/27/18 16:31 Ceftriaxone Sodium 1 gm/ (Sodium Chloride) 100 mls @ 100 mls/hr IVPB 0400,1600 [facility] Stop: 08/26/18 17:08 Last Infusion: 08/22/18 06:10 Dose: Infused Documented by: Lisinopril (Zestril) 20 mg PO DAILY [facility] Last Admin: 08/22/18 10:02 Dose: 20 mg Documented by: Olanzapine (Zyprexa) 5 mg PO DAILY [facility] Last Admin: 08/22/18 10:02 Dose: 5 mg Documented by: Pantoprazole Sodium (Protonix) 40 mg PO DAILYAC [facility] Last Admin: 08/22/18 06:52 Dose: 40 mg Documented by: Pregabalin (Lyrica) 150 mg PO BID [facility] Last Admin: 08/22/18 10:00 Dose: 150 mg Documented by: Tramadol HCl (Ultram) 50 mg PO Q6H PRN PRN Reason: PAIN - MODERATE (5-7) Physical Exam - Vital Signs Vital Signs: Vital Signs - Last 24 Hrs Temp Pulse Pulse Resp BP BP Pulse Ox 08/22/18 10:23 72 18 95 08/22/18 08:00 97.5 F L 82 16 138/94 92 L 08/22/18 00:05 62 20 92 L 08/21/18 21:53 97.7 F 63 18 98/67 96 08/21/18 19:56 18 08/21/18 17:07 97.7 F 77 16 112/79 98 08/21/18 16:36 78 16 102/68 95 08/21/18 16:31 71 16 102/68 96 08/21/18 15:20 58 L 16 112/77 95 08/21/18 13:22 62 16 110/75 96 - General General Appearance: Alert, Oriented x3, Cooperative, Mild distress, Anxious Limitations: No limitations - Head Head exam: Atraumatic, Normocephalic, Normal inspection - Eye Eye exam: Normal appearance, PERRL - ENT Throat exam: Normal inspection. negative: Tonsillar erythema, Tonsillar exudate - Neck Neck exam: Normal inspection, Full ROM. negative: Lymphadenopathy, Meningismus, Tenderness - Respiratory Respiratory exam: Normal lung sounds bilaterally, Chest wall tenderness (The pain is reproducible with palpation to the L upper chest wall.). negative: Respiratory distress - Cardiovascular Cardiovascular Exam: Regular rate, Normal rhythm, Normal heart sounds Peripheral Pulses: 2+: Radial (R), Radial (L), Dorsalis Pedis (R), Dorsalis Pedis (L) - GI/Abdominal GI/Abdominal exam: Soft, Normal bowel sounds. negative: Tenderness - Rectal Rectal exam: Deferred - exam: Deferred - Extremities Extremities exam: Normal inspection, Full ROM, Normal capillary refill. negative: Tenderness - Back Back exam: Reports: Normal inspection - Neurological Neurological exam: Alert, Oriented X3. negative: Motor sensory deficit - Psychiatric Psychiatric exam: Anxious - Skin Skin exam: Normal color Results - Labs Result Diagrams: 08/22/18 06:28 08/21/18 11:25 Labs Last 24 Hours: Laboratory Results - last 24 hr 08/21/18 08/21/18 08/21/18 11:25 11:25 11:25 WBC 16.6 H RBC 4.20 Hgb 10.9 L Hct 34.4 L MCV 81.9 MCH 25.9 L MCHC 31.7 L RDW 15.8 H Plt Count 265 MPV 11.3 H Gran % 76.6 Lymphocytes % 18.2 Monocytes % 4.5 Eosinophils % 0.5 Basophils % 0.2 Absolute Neutrophils 12.71 D-Dimer 3.55 H Sodium 143 Potassium 3.6 Chloride 104 Carbon Dioxide 26.0 Anion Gap 13.0 BUN 9 Creatinine 0.8 Estimated GFR > 60 Random Glucose 92 Calcium 8.9 Creatine Kinase 54 CK-MB (CK-2) < 1.0 Troponin T < 0.010 NT-Pro-B Natriuret Pep 08/21/18 08/21/18 08/22/18 11:25 15:20 06:28 WBC 6.7 RBC 4.02 Hgb 10.2 L Hct 33.5 L MCV 83.3 MCH 25.3 L MCHC 30.4 L RDW 15.9 H Plt Count 242 MPV 11.0 H Gran % 49.5 Lymphocytes % 41.8 Monocytes % 5.7 Eosinophils % 2.4 Basophils % 0.6 Absolute Neutrophils 3.31 D-Dimer Sodium Potassium Chloride Carbon Dioxide Anion Gap BUN Creatinine Estimated GFR Random Glucose Calcium Creatine Kinase CK-MB (CK-2) Troponin T < 0.010 NT-Pro-B Natriuret Pep 493.30 H VTE H&P Assessment - Risk for VTE Risk for VTE: Yes Risk Level: Moderate Risk Assessment Date: 08/22/18 Risk Assessment Time: 09:30 VTE Orders Placed or Will Be Placed: Yes Plan - Detailed Diagnosis and Plan (1) CAP (community acquired pneumonia) Current Visit: Yes Status: Acute Base Code: J18.9 - PNEUMONIA, UNSPECIFIED ORGANISM Comment: 08/22/18: -CXR: patchy bilateral pulmonary opacities -CTA Chest: no PE, multifocal PNA -Rocephin and Zithromax started -WBC 16.6 in ED, 6.7 on repeat -Afebrile -VS q4h -No need for supplemental oxygen at this time (2) Chest pain Current Visit: Yes Status: Acute Base Code: R07.9 - CHEST PAIN, UNSPECIFIED Comment: 08/22/18: -Intermittent chest pain x 2 weeks -Troponin neg x 2 -security monitor -d-dimer elevated but CTA chest neg for PE -Likely due to pneumonia, pain reproducable with palpation -Ofirmev, Toradol and [place] not effective for pain -Will trial Ultram (3) DVT prophylaxis Current Visit: Yes Status: Acute Base Code: Z29.9 - ENCOUNTER FOR PROPHYLACTIC MEASURES, UNSPECIFIED Comment: 08/22/18: -Moderate risk this admission due to hospitalization and illness -Encourage ambulation within the room -Lovenox 40mg SQ daily (4) Full code status Current Visit: Yes Status: Acute Base Code: Z78.9 - OTHER SPECIFIED HEALTH STATUS Comment: 08/22/18: -Patient is a full code this admission
[2018-08-22] MEDS: CEFTRIAXONE 1GM/50ML BAG 1 GM/50 ML BAG IVPB ONE (12:14)
[2018-08-22] MEDS ORDERED: CEFTRIAXONE 1GM/50ML BAG 1 GM/50 ML BAG IVPB SCH (16:00)
--- NOTE | 2018-08-22 16:00 | Discharge Summary ---
Providers Discharge Summary Date: 08/22/18 Date of admission: 08/21/18 16:51 Expected Date of Discharge: 08/22/18 Attending physician: HARJIT CARLIN Primary care physician: ELY ARANGO M.D. Physical Exam - Vital Signs Vital Signs: Vital Signs - Last 24 Hrs Temp Pulse Pulse Resp BP BP Pulse Ox 08/22/18 10:23 72 18 95 08/22/18 08:00 97.5 F L 82 16 138/94 92 L 08/22/18 00:05 62 20 92 L 08/21/18 21:53 97.7 F 63 18 98/67 96 08/21/18 19:56 18 08/21/18 17:07 97.7 F 77 16 112/79 98 08/21/18 16:36 78 16 102/68 95 08/21/18 16:31 71 16 102/68 96 - General General Appearance: Alert, Oriented x3, Cooperative, No acute distress, Anxious Limitations: No limitations - Head Head exam: Atraumatic, Normocephalic, Normal inspection - Eye Eye exam: Normal appearance, PERRL - ENT ENT exam: Mucous membranes moist Throat exam: Normal inspection. negative: Tonsillar erythema, Tonsillar exudate - Neck Neck exam: Normal inspection, Full ROM. negative: Lymphadenopathy, Meningismus, Tenderness - Respiratory Respiratory exam: Chest wall tenderness (The pain is reproducible with palpation to the L upper chest wall.), Wheezes (scattered throughout). negative: Respiratory distress - Cardiovascular Cardiovascular Exam: Regular rate, Normal rhythm, Normal heart sounds Peripheral Pulses: 2+: Radial (R), Radial (L), Dorsalis Pedis (R), Dorsalis Pedis (L) - GI/Abdominal GI/Abdominal exam: Soft, Normal bowel sounds. negative: Tenderness - Rectal Rectal exam: Deferred - exam: Deferred - Extremities Extremities exam: Normal inspection, Full ROM, Normal capillary refill. negative: Tenderness - Back Back exam: Reports: Normal inspection - Neurological Neurological exam: Alert, Oriented X3. negative: Motor sensory deficit - Psychiatric Psychiatric exam: Anxious - Skin Skin exam: Normal color Hospitalization - Hospitalization Admission Diagnosis: 1. Acute Pneumonia - Problem List/Discharge Diagnosis (1) CAP (community acquired pneumonia) Current Visit: Yes Status: Acute Base Code: J18.9 - PNEUMONIA, UNSPECIFIED ORGANISM Comment: 08/22/18: -CXR: patchy bilateral pulmonary opacities -CTA Chest: no PE, multifocal PNA -Rocephin and Zithromax started -WBC 16.6 in ED, 6.7 on repeat -Afebrile -VS q4h -No need for supplemental oxygen at this time -Will DC with Cefdinir 300mg BID x 10 days (2) Chest pain Current Visit: Yes Status: Acute Base Code: R07.9 - CHEST PAIN, UNSPECIFIED Comment: 08/22/18: -Intermittent chest pain x 2 weeks -Troponin neg x 2 -air sampling and monitoring -d-dimer elevated but CTA chest neg for PE -Likely due to pneumonia, pain reproducable with palpation -Ofirmev, Toradol and [place] not effective for pain -Reports relief with Ultram (3) DVT prophylaxis Current Visit: Yes Status: Acute Base Code: Z29.9 - ENCOUNTER FOR PROPHYLACTIC MEASURES, UNSPECIFIED Comment: 08/22/18: -Moderate risk this admission due to hospitalization and illness -Encourage ambulation within the room -Lovenox 40mg SQ daily (4) Full code status Current Visit: Yes Status: Acute Base Code: Z78.9 - OTHER SPECIFIED HEALTH STATUS Comment: 08/22/18: -Patient is a full code this admission - Hospitalization Course Disposition: Home, Self-Care Hospital Course: 43 year old female patient presents to ED for evaluation of left-sided chest pain intermittent for 2 weeks and increased falls x 2 weeks. Patient reports a sharp pain in the left-upper chest that is worse with coughing or movement. Denies noting any relieving factors, denies noting any injury. Patient reports occasional cough but denies SOB, JULIA, nausea, vomiting, abdominal pain, or fevers. Patient is a poor historian. Past medical history includes COPD and current smoker, fibromyalgia, and chronic pain. PCP: Dr. Ely Arango ED Course: Temp 98.8F, HR 86, RR 20, BP 113/77, Pulse ox 95% WBC 16.6, trop neg x 2, D-dimer 3.55, ProBNP 493 CXR: patchy bilateral pulmonary opacities suspicious for PNA CTA Chest: No PE, multifocal PNA 08/22/18: Patient A&O x 4, resting comfortably in bed. Patient reports no shortness of breath or difficulty breathing. Reports continued left-sided upper chest pain that is only relieved by Dilaudid. Denies any relief from Toradol or [place] at this time. Will trial Ultram. VS remains stable, remains on RA. WBC has improved, afebrile throughout the night. UPDATE: Patient reports pain has improved, states overall feeling better at this time. Reports continued dyspnea with exertion, but denies shortness of breath at rest. Afebrile, has remained on room air. Procedures: Imaging and X-Rays 08/21/18 10:59 CHEST 2 VIEWS [RAD] Stat 08/21/18 14:07 CHEST CTA w contrast [CTA] Stat Cardiology Procedures 08/21/18 10:59 EKG NOW Abnormal Labs: Abnormal Lab Results 08/21/18 08/21/18 08/21/18 Range/Units 11:25 11:25 11:25 WBC 16.6 H (4.2-12.2) K/uL Hgb 10.9 L (11.6-16.0) gm/dl Hct 34.4 L (35.0-47.0) % MCH 25.9 L (27-33) pg MCHC 31.7 L (32-36) g/dl RDW 15.8 H (11.5-14.5) % MPV 11.3 H (7.4-10.4) fl D-Dimer 3.55 H (0-0.59) mg/L FEU NT-Pro-B Natriuret Pep 493.30 H (<125) pg/mL 08/22/18 Range/Units 06:28 WBC (4.2-12.2) K/uL Hgb 10.2 L (11.6-16.0) gm/dl Hct 33.5 L (35.0-47.0) % MCH 25.3 L (27-33) pg MCHC 30.4 L (32-36) g/dl RDW 15.9 H (11.5-14.5) % MPV 11.0 H (7.4-10.4) fl D-Dimer (0-0.59) mg/L FEU NT-Pro-B Natriuret Pep (<125) pg/mL Condition at Discharge: (2) Stable Discharge Medications - Discharge Medications Prescriptions: Ipratropium/Albuterol [Duoneb] 3 ml INH RESP.Q4H PRN #20 ampul.neb PRN Reason: Wheezing Cefdinir [Omnicef] 300 mg PO BID #14 cap Tramadol HCl [Ultram] 50 mg PO Q6H PRN #10 tablet PRN Reason: Pain - Moderate (5-7) Home Medications: Ambulatory Orders Albuterol Sulfate 0.083% [Neb] [Albuterol Sulfate] 3 ml NEB .EVERY 4-6 HOURS PRN 09/06/14 [Last Taken 05/29/18] Albuterol Sulfate [Proair Hfa] 2 puff INH Q4HR PRN 09/06/14 [Last Taken 05/29/18] Amlodipine Besylate [Norvasc] 10 mg PO DAILY 09/06/14 [Last Taken 05/29/18] Budesonide/Formoterol Fumarate [Symbicort 80-4.5 Mcg Inhaler] 2 puff INH Q6HR 09/06/14 [Last Taken 05/29/18] Buspirone HCl [Buspar] 15 mg PO BID 12/17/16 [Last Taken 05/29/18] Dicyclomine HCl 20 mg PO QIDWMHS 12/17/16 [Last Taken 05/29/18] Hydrocodone/Acetaminophen [Hydrocodone/Acetaminophen 7.5mg/325mg] 1 tab PO BID PRN 12/17/16 [Last Taken 05/29/18] Lisinopril/Hydrochlorothiazide [Lisinopril-Hctz 20-12.5 mg Tab] 1 each PO BID 12/17/16 [Last Taken 05/29/18] Olanzapine 5 mg PO DAILY 12/17/16 [Last Taken 05/29/18] Omeprazole 40 mg PO DAILY 12/17/16 [Last Taken 05/29/18] Ondansetron HCl [Zofran] 4 mg PO Q4H PRN 12/17/16 [Last Taken 05/29/18] Cefdinir [Omnicef] 300 mg PO BID #14 cap 08/22/18 [Last Taken Unknown] Fluoxetine HCl 20 mg PO DAILY 08/22/18 [Last Taken Unknown] Ipratropium/Albuterol [Duoneb] 3 ml INH RESP.Q4H PRN #20 ampul.neb 08/22/18 [Last Taken Unknown] Pregabalin [Lyrica] 150 mg PO BID 08/22/18 [Last Taken Unknown] Tramadol HCl [Ultram] 50 mg PO Q6H PRN #10 tablet 08/22/18 [Last Taken Unknown] Discharge Plan - Discharge Instructions Activity at Discharge: Increase Activity as Tolerated Diet at Discharge: Regular Diet Additional Instructions: -Starting tonight, take the antibiotic (Cefdinir) 1 tab twice a day -Use your albuterol nebulizer 2-3 times daily over the next 3 days -Stop smoking -Follow-up with PCP Dr. Arango in 1-2 weeks Quality Measures - Quality Measures Quality Measures: Documentation of Current Medications in Medical Record, Screening for High Blood Pressure and F/U Documented - Current Medications Quality Measure: Measure #130: Documentation of Current Medications Documentation of Current Medications: <Current Medications Documented/Reviewed> [G8427] - Blood Pressure Screening Quality Measure: Screening for High Blood Pressure and Follow-Up Documented Does Patient Have Any of the Following: Active Dx of HTN Blood Pressure Classification: Normal BP Reading Systolic Measurement: 102 Diastolic Measurement: 68 Screening for High Blood Pressure: Patient Exclusion, Hx of HTN [G9744] - Elder Abuse Suspicion Index EASI Reference Information: Inga VALERO, Arabella C, Werner D, Alexandra Chen.Development and validation of a tool to assist physicians identification of elder abuse: The Elder Abuse Suspicion Index (EASI ). Journal of Elder Abuse and Neglect, 2008; 20 (3): 276-300.
[2018-08-22] MEDS ORDERED: AZITHROMYCIN 500 MG in 0.9 % SODIUM CHLORIDE 250ML 250 ML IVPB SCH (16:30)
[2018-08-23] MEDS ORDERED: ENOXAPARIN 40 MG/0.4 ML SYR SQ SCH (10:00)
== END 2018-08-22 17:21 | disposition home or self-care (01) ==
LOC: ER 10:36 → MEDSURG 16:51
PROVIDERS: ADMIT Internal Medicine; ATTEND Internal Medicine
DX: J18.9 Pneumonia, unspecified organism (principal); J44.9 Chronic obstructive pulmonary disease, unspecified; I10 Essential (primary) hypertension; J45.909 Unspecified asthma, uncomplicated; M19.90 Unspecified osteoarthritis, unspecified site; F17.210 Nicotine dependence, cigarettes, uncomplicated; M79.7 Fibromyalgia; G89.29 Other chronic pain; Z29.9 Encounter for prophylactic measures, unspecified
CPT/HCPCS: 82550; 85025 ×2; 82553; 80048; 84145; 84484; 85379; 83880; 71046; 71275; 94640 ×2; 94761; 93005; 93010; G0378 ×2; Q9967; J1885; J1170 ×2; J0696 ×2; 96365; 96366; 96374; 96375; 96376; 99220; 99285; J0456; J7050

== ENCOUNTER 2018-08-25 17:33 | Emergency (ER) | payer MEDICARE, MEDICAID ==
[2018-08-25] MEDS ORDERED: AZITHROMYCIN 500 MG TABLET PO ONE (17:54)
[2018-08-25] MEDS ORDERED: PREDNISONE 20 MG TAB PO ONE (17:54)
--- NOTE | 2018-08-25 17:55 | Emergency Department Record ---
History of Present Illness - General Chief Complaint: Shortness of breath Stated Complaint: BELIEVES PNEUMONIA IS WORSE Time Seen by Provider: 08/25/18 17:46 Source: Patient Mode of Arrival: Ambulatory Limitations: No limitations - History of Present Illness Initial Comments: 43 yo female presents with continue cough. She was diagnosed with pneumonia on 08/22/18. She continues to smoke. She is taking her antibiotics. No significant sputum. No bloody sputum. No leg pain or swelling. No fever since DC. She has her breathing treatments at home and has used them. She has not called her PCP for follow up at this point. MD Complaint: Chest pain, Cough Onset/Timin -: Days(s) Severity: Moderate Quality: Aching Consistency: Constant Improves With: Nothing Worsens With: Nothing Known History Of: Asthma Context: Recent illness Associated Symptoms: Chest pain, Cough, Nausea/vomiting Treatments Prior to Arrival: None - Related Data Home Oxygen Therapy: No Previous Rx's Medication Instructions Recorded Cefdinir [Omnicef] 300 mg PO BID #14 cap 08/22/18 Ipratropium/Albuterol [Duoneb] 3 ml INH RESP.Q4H PRN #20 ampul.neb 08/22/18 Tramadol HCl [Ultram] 50 mg PO Q6H PRN #10 tablet 08/22/18 Prednisone [Prednisone 20Mg] 20 mg PO BID #8 tab 08/25/18 Allergies Allergy/AdvReac Type Severity Reaction Status Date / Time morphine Allergy ITCHING Verified 08/25/18 17:41 haloperidol [From Haldol] AdvReac FATIGUE Verified 08/25/18 17:41 haloperidol lactate AdvReac FATIGUE Verified 08/25/18 17:41 [From Haldol] Travel Screening - Travel/Exposure Within Last 30 Days Have you traveled within the last 30 days?: No Review of Systems Constitutional: Denies: Chills, Fever, Malaise, Weakness Eyes: Denies: Eye discharge ENT: Denies: Congestion, Ear pain, Throat pain Respiratory: Reports: Cough, Dyspnea. Denies: Hemoptysis, Stridor, Wheezes Cardiovascular: Denies: Chest pain, Palpitations, Syncope Endocrine: Denies: Fatigue Gastrointestinal: Denies: Abdominal pain, Diarrhea, Nausea, Vomiting Genitourinary: Denies: Dysuria, Urgency Musculoskeletal: Denies: Arthralgia, Back pain, Myalgia Skin: Denies: Bruising, Change in color, Rash Neurological: Denies: Headache Psychiatric: Denies: Anxiety Hematological/Lymphatic: Denies: Blood Clots, Easy bleeding, Easy bruising, Swollen glands Past Medical History - SOCIAL HISTORY Smoking Status: Current every day smoker Alcohol Use: None Drug Use: None - RESPIRATORY Hx Respiratory Disorders: Yes Hx Asthma: Yes Hx Pneumonia: Yes - CARDIOVASCULAR Hx Cardio Disorders: Yes Hx Hypertension: Yes - NEURO Hx Neuro Disorders: Yes Hx Headaches: Yes (migraines since age 18) - GI Hx GI Disorders: No - Hx Genitourinary Disorders: Yes Hx Bladder Problem: Yes - ENDOCRINE Hx Endocrine Disorders: No - MUSCULOSKELETAL Hx Musculoskeletal Disorders: Yes Hx Arthritis: Yes - PSYCH Hx Psych Problems: Yes Hx Anxiety: Yes - HEMATOLOGY/ONCOLOGY Hx Hematology/Oncology Disorders: Yes 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 negative: Conjunctival injection, Scleral icterus - ENT ENT exam: Normal exam, Mucous membranes moist Ear exam: Normal external inspection Nasal Exam: Normal inspection Mouth exam: Normal external inspection - Neck Neck exam: Normal inspection, Full ROM. negative: Lymphadenopathy - Respiratory Respiratory exam: Chest wall tenderness (left upper), Decreased breath sounds, Prolonged expiratory, Wheezes, Other (calm breathing with good air exchange). negative: Accessory muscle use, Respiratory distress, Rhonchi, Stridor - Cardiovascular Cardiovascular Exam: Regular rate, Normal rhythm, Normal heart sounds - Rectal Rectal exam: Deferred - exam: Deferred - Extremities Extremities exam: Normal inspection. negative: Calf tenderness, Pedal edema, Tenderness - Back Back exam: Denies: CVA tenderness (R), CVA tenderness (L) - Neurological Neurological exam: Alert, Oriented X3 - Psychiatric Psychiatric exam: Normal affect, Normal mood - Skin Skin exam: Dry, Intact, Normal color, Warm Course Vital Signs 08/25/18 17:43 Temperature 98.0 F Pulse Rate 86 Respiratory 16 Rate Blood Pressure 137/94 Pulse Ox 97 - Reevaluation(s) Reevaluation #1: The EMR was reviewed The CTA demonstrated pneumonia. No PE Her vitals today were reviewed. No acute abnormality. No hypoxia or tachycardia. No fever. 08/25/18 17:49 08/25/18 17:55 She is not labored. She has mild expiratory wheeze. No retractions. No conversational dyspnea. Her work of breathing is very comfortable. 08/25/18 18:35 The CXR demonstrated interval improvement of the pneumonia Steroids were added to the prescriptions Disposition Disposition: Discharge Clinical Impression: Pneumonia Disposition: Home, Self-Care Condition: (1) Good Instructions: Community Acquired Pneumonia (ED) Additional Instructions: Call your doctor for the next available follow up appointment Review this ER visit and the tests performed with your family doctor Return to the ER for a recheck if worse, any new concerns or questions Take the prescriptions provided as directed Prescriptions: Prednisone [Prednisone 20Mg] 20 mg PO BID #8 tab Forms: Patient Portal Access Time of Disposition: 18:35 Quality - Quality Measures Quality Measures: N/A - Blood Pressure Screening Does Patient Have Any of the Following: No Blood Pressure Classification: Hypertensive Reading Systolic Measurement: 120 Diastolic Measurement: 91 Screening for High Blood Pressure: < Pre-Hypertensive BP, F/U Documented > [G8950] Pre-Hypertensive Follow-up Interventions: Referral to alternative/primary care provider.
[2018-08-25] MEDS ORDERED: IPRATROPIUM/ALBUTEROL (0.5MG/3MG) NEB INH ONE (17:59)
--- NOTE | 2018-08-26 10:57 | RADIOLOGY REPORT ---
EXAM: CHEST, TWO VIEWS HISTORY: COUGHING AND SHORTNESS OF BREATH. TECHNIQUE: Frontal and lateral views of the chest were obtained. Comparison: 08/21/18. FINDINGS: The cardiomediastinal silhouette is normal in size. The pulmonary vasculature is not overly congested. The patchy air space opacities seen previously have nearly resolved. No new consolidation, pleural effusion, or pneumothorax is seen. IMPRESSION: INTERVAL IMPROVEMENT IN THE BILATERAL AIR SPACE DISEASE. NO NEW CONSOLIDATION. JOB NUMBER: [id number] [facility]
== END 2018-08-25 18:45 | disposition home or self-care (01) ==
LOC: ER 17:33
DX: J18.9 Pneumonia, unspecified organism (principal); R06.02 Shortness of breath; R11.2 Nausea with vomiting, unspecified; I10 Essential (primary) hypertension; F17.210 Nicotine dependence, cigarettes, uncomplicated
CPT/HCPCS: 99283; 99284; 71046; 94640; J7512

== ENCOUNTER 2018-09-11 07:03 | Inpatient (IN) | payer MEDICARE, MEDICAID ==
[2018-09-11] MEDS ORDERED: ALBUTEROL (0.5% CONCENTRATED) 2.5 MG/0.5 ML VIAL.NEB INH ONE (07:13)
[2018-09-11] MEDS ORDERED: IPRATROPIUM/ALBUTEROL (0.5MG/3MG) NEB INH ONE (07:14)
[2018-09-11] MEDS ORDERED: ALBUTEROL SULFATE (0.083%) 2.5 MG/3 ML NEB INH ONE (07:26)
[2018-09-11] MEDS ORDERED: METHYLPREDNISOLONE PF 125MG/VIAL IVP ONE (07:26)
[2018-09-11] MEDS ORDERED: 0.9 % SODIUM CHLORIDE 1,000 ML BAG IV ONE (07:29)
[2018-09-11] MEDS ORDERED: ACETAMINOPHEN 325 MG TAB PO ONE (07:29)
[2018-09-11 07:37] LABS: ABSOLUTE NEUTROPHIL COUNT 12.69; HEMOGLOBIN 12.6 gm/dl (11.6-16.0); MEAN CELL VOLUME 81.3 fl (81-97); MEAN CORPUSCULAR HGB CONC 30.7 g/dl (32-36); MEAN PLATELET VOLUME 10.1 fl (7.4-10.4); PLATELET COUNT 434 K/uL (130-400); RED BLOOD COUNT 5.04 M/uL (3.80-5.40); RED CELL DISTRIBUTION WIDTH 16.4 % (11.5-14.5); WHITE BLOOD COUNT W/O DIFF 15.3 K/uL (4.2-12.2)
--- NOTE | 2018-09-11 07:43 | Emergency Department Record ---
History of Present Illness - General Chief Complaint: Difficulty Breathing Stated Complaint: JULIA Time Seen by Provider: 09/11/18 07:14 Source: Patient Mode of Arrival: Ambulatory Limitations: No limitations - History of Present Illness Initial Comments: The patient is here due to a one day hx of worsening coughing and SOB. The patient was diagnosed with pneumonia about 3 weeks ago and did stay overnight in the hospital here. She was discharged on Cefdninir and Prednisone and did take those appropriately. The patient also had a PE study done on that admission that was negative for PE but did show bilateral pneumonia. She was doing better over the last 2 weeks but then yesterday her SOB and cough returned. She has significant DIALLO and also feels feverish. The patient is having R sided CP when coughing or twisting. She denies any L sided CP, back pain, or sputum production. The patient was a 2 pack a day tobacco smoker but quit 4 days ago. MD Complaint: Cough, Shortness of breath Onset/Timin -: Days(s) Consistency: Constant Known History Of: Asthma, COPD Context: Recent illness Associated Symptoms: Nausea/vomiting Treatments Prior to Arrival: None - Related Data Previous Rx's Medication Instructions Recorded Ipratropium/Albuterol [Duoneb] 3 ml INH RESP.Q4H PRN #20 ampul.neb 08/22/18 Tramadol HCl [Ultram] 50 mg PO Q6H PRN #10 tablet 08/22/18 Allergies Allergy/AdvReac Type Severity Reaction Status Date / Time levofloxacin [From Levaquin] Allergy ITCHING Verified 09/11/18 08:56 morphine Allergy ITCHING Verified 08/25/18 17:41 haloperidol [From Haldol] AdvReac FATIGUE Verified 08/25/18 17:41 haloperidol lactate AdvReac FATIGUE Verified 08/25/18 17:41 [From Haldol] Travel Screening - Travel/Exposure Within Last 30 Days Have you traveled within the last 30 days?: No - Travel/Exposure Within Last Year Have you traveled outside the [place] in the last year?: No - Additonal Travel Details Have you been exposed to anyone with a communicable illness?: No Review of Systems Constitutional: Denies: Chills, Fever Eyes: Denies: Eye discharge ENT: Reports: Congestion Respiratory: Reports: Cough, Dyspnea Cardiovascular: Reports: Dyspnea on exertion Endocrine: Reports: Fatigue Gastrointestinal: Denies: Nausea Genitourinary: Denies: Dysuria Musculoskeletal: Reports: Arthralgia Skin: Denies: Bruising Past Medical History - SOCIAL HISTORY Smoking Status: Current every day smoker Alcohol Use: Occasional Drug Use: Occasional Drug Use Detail:: Marijuana - RESPIRATORY Hx Respiratory Disorders: Yes Hx Asthma: Yes Hx Pneumonia: Yes - CARDIOVASCULAR Hx Cardio Disorders: Yes Hx Hypertension: Yes - NEURO Hx Neuro Disorders: Yes Hx Headaches: Yes (migraines since age 18) - GI Hx GI Disorders: No - Hx Genitourinary Disorders: Yes Hx Bladder Problem: Yes - ENDOCRINE Hx Endocrine Disorders: No - MUSCULOSKELETAL Hx Musculoskeletal Disorders: Yes Hx Arthritis: Yes - PSYCH Hx Psych Problems: Yes Hx Anxiety: Yes - HEMATOLOGY/ONCOLOGY Hx Hematology/Oncology Disorders: Yes 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 negative: Tonsillar erythema, Tonsillar exudate - Neck Neck exam: Normal inspection, Full ROM. negative: Tenderness - Respiratory Respiratory exam: Chest wall tenderness (the R sided CP is 100% reproducible to palpation.), Rhonchi, Wheezes. negative: Normal lung sounds bilaterally, Accessory muscle use, Decreased breath sounds, Prolonged expiratory - Cardiovascular Cardiovascular Exam: Regular rate, Normal rhythm, Normal heart sounds, Tachycardia - GI/Abdominal GI/Abdominal exam: Soft, Normal bowel sounds. negative: Tenderness - Extremities Extremities exam: Normal inspection, Full ROM, Normal capillary refill. negative: Tenderness - Back Back exam: Reports: Normal inspection - Neurological Neurological exam: Alert, Normal gait. negative: Abnormal gait, Motor sensory deficit - Psychiatric Psychiatric exam: Flat affect. negative: Anxious Course Vital Signs 09/11/18 09/11/18 09/11/18 07:06 07:08 07:16 Temperature 99.8 F H Pulse Rate 127 H 119 H Pulse Rate [ 131 H Pulse Ox Probe] Respiratory 40 H 40 H 20 Rate Blood Pressure 158/104 Blood Pressure 158/104 [Left Arm] Pulse Ox 85 L 85 L 95 09/11/18 07:19 Temperature 99.8 F H Pulse Rate Pulse Rate [ Pulse Ox Probe] Respiratory Rate Blood Pressure Blood Pressure [Left Arm] Pulse Ox - Reevaluation(s) Reevaluation #1: The patient is doing a lot better at this time. She is up walking with no JULIA or difficulty and states her breathing is much improved. On exam she is moving air well with only minor wheezing in the lower lobes. Her vitals are much improved and she is still requiring oxygen. Due to that fact we will be admitting the patient to the hospital. I did discuss the case with Lexy Barrow (SUPERVIS[employer]) who did accept the admission for Dr. Park. The patient did receive IV Toradol and Levaquin here in the ER. She did have some itching after which did resolved with Benadryl. The patient states she has received both of those in the past so it is not clear why she has the itching. We will continue to monitor. 09/11/18 08:50 Reevaluation #2: The patient is again having some itching after the Levaquin was restarted. We will stop it and will place the patient on Rocephin and Zithromax. 09/11/18 08:57 Medical Decision Making - Data Complexity MDM Data: Labs Ordered and/or Reviewed, X-Ray Ordered and/or Reviewed, EKG Ordered and/or Reviewed - Lab Data Result diagrams: 09/11/18 07:15 09/11/18 07:15 - EKG Data -: EKG Interpreted by Ar EKG: No Acute Changes, Unchanged From Previous - Radiology Data Radiology results: Report reviewed (CXR: R lower lobe infiltrate.) Disposition Disposition: Admit Clinical Impression: CAP (community acquired pneumonia) Qualifiers: Laterality: right Lung location: lower lobe of lung Qualified Code(s): J18.1 - Lobar pneumonia, unspecified organism Disposition: Still a Patient at [facility] Decision to Admit: Admit from ER Decision to Admit Date: 09/11/18 Decision to Admit Time: 08:53 Accepting Physician: Vivian Time Discussed w/Accepting Physician: 08:53 Condition: (2) Stable Forms: Patient Portal Access Time of Disposition: 08:53 Quality - Quality Measures Quality Measures: Headache (All Ages) - Headache: Neuroimaging Quality Measure: Measure #419: Overuse of Neuroimaging ICD10 Codes Entered: Yes View Detail: Yes Neurological Exam: Patient had a normal neurological exam. [G9535] Headache: Use of Neuroimaging: < CTA, CT, MRA or MRI was NOT ordered > [G9534] - Blood Pressure Screening View Details: Yes Does Patient Have Any of the Following: Active Dx of HTN Blood Pressure Classification: Hypertensive Reading Systolic Measurement: 158 Diastolic Measurement: 104 Screening for High Blood Pressure: Patient Exclusion, Hx of HTN [G9744]
[2018-09-11 07:48] LABS: PLATELET ESTIMATE NORMAL (NORMAL)
[2018-09-11 07:51] LABS: BLOOD UREA NITROGEN 18 mg/dL (6-20); EST GLOMERULAR FILTRATION RATE > 60 mL/min
[2018-09-11 07:52] LABS: TOTAL PROTEIN 7.8 g/dL (6.6-8.7)
[2018-09-11 07:53] LABS: LACTIC ACID 2.9 mmol/L (0.5-2.2)
[2018-09-11 07:54] LABS: GLUCOSE,RANDOM 164 mg/dL (74-109)
[2018-09-11 07:57] LABS: ALB/GLOB RATIO 1.4 (1.1-1.8); ALBUMIN 4.5 g/dL (4.0-5.0); ALKALINE PHOSPHATASE 149 U/L (35-104); ALT/SGPT 12 U/L (<33); AST/SGOT 14 U/L (10.0-35.0)
[2018-09-11] MEDS ORDERED: LEVOFLOXACIN/D5W 750 MG/150 ML BAG IVPB ONE (08:15)
[2018-09-11] MEDS ORDERED: KETOROLAC 30 MG/ML VIAL IVP ONE (08:18)
[2018-09-11] MEDS ORDERED: ONDANSETRON HCL IV 4 MG/2 ML VIAL IVP ONE (08:18)
[2018-09-11] MEDS ORDERED: DIPHENHYDRAMINE HCL 50 MG/ML VIAL IVP ONE ×2 (08:38→09:02)
[2018-09-11] MEDS ORDERED: AZITHROMYCIN 500 MG in 0.9 % SODIUM CHLORIDE 250ML 250 ML IVPB ONE (08:56)
[2018-09-11] MEDS ORDERED: CEFTRIAXONE 1GM/50ML BAG 1 GM/50 ML BAG IVPB ONE (08:56)
[2018-09-11] MEDS ORDERED: TRAMADOL HCL 50 MG TABLET PO ONE (09:04)
[2018-09-11] MEDS ORDERED: ACETAMINOPHEN 325 MG TAB PO PRN (10:21)
[2018-09-11] MEDS ORDERED: TRAMADOL HCL 50 MG TABLET PO PRN (10:21)
[2018-09-11] MEDS: IPRATROPIUM/ALBUTEROL (0.5MG/3MG) NEB INH SCH ×4 (11:07→21:57)
--- NOTE | 2018-09-11 11:11 | History & Physical ---
History of Present Illness - Date of Service Date of Service for History & Physical: 09/12/18 - History of Present Illness Admitting Diagnosis: 1. Acute R Lower Lobe Pneumonia with Hypoxia. History of Present Illness: 43 yo female presents for return visit for CAP RLL. Reporting pain, shortness of breath, fatigue, and continued productive cough. PMH failed outpt tx after d/c last week. 33 year 2ppd smoking history but pt reports that she quit a few days ago. PMH COPD, depression and fibromyalgia. CXR shows RLL PNA, Temp 99.8, HR 127, BP 158/104, RR 40, 85% RA, placed on O2 and increased to 95%. Given alb neb tx and decreased work of breathing Pt started on rocephin and azithrmax IVPB, alb neb tx and steroids IVP. Pt given ultram in ER. CBC 15.3, Hgb 12.6, Hct 41, Plt 434 Na 144, K 3.7, BUN 18, Cr 1.0, GFR >60, Glucose 164, Trop <0.010, proBNP 68, procalcitonin 0.097 09/11/18 Pt resting in bed, no distress but continues to complain about pain and asking about getting her home norco medication. Pt updated that she is getting ultram for her pain with tylenol and that this is on a fixed schedule, as she has been asking all staff that enter the room for more pain medication. Pt does not appear in distress, has mild cough but is able to maintain conversation without difficulty. Skin pink warm and dry, moving all extremities. POC continue IVPB rocephin, change azithromax to PO, continue IVP steroids and alb neb tx. Repeat labs in the am Travel Screening - Travel/Exposure Within Last 30 Days Have you traveled within the last 30 days?: No - Travel/Exposure Within Last Year Have you traveled outside the [place] in the last year?: No - Additonal Travel Details Have you been exposed to anyone with a communicable illness?: No - Travel Symptoms Symptom Screening: None Review of Systems Constitutional: Denies: Chills, Fever Eyes: Denies: Eye discharge ENT: Reports: Congestion Respiratory: Reports: Cough, Dyspnea Cardiovascular: Reports: Dyspnea on exertion Endocrine: Reports: Fatigue Gastrointestinal: Denies: Nausea Genitourinary: Denies: Dysuria Musculoskeletal: Reports: Arthralgia Skin: Denies: Bruising Past Medical History - SOCIAL HISTORY Smoking Status: Former smoker Alcohol Use: None Drug Use: None - RESPIRATORY Hx Respiratory Disorders: Yes Hx Asthma: Yes Hx COPD: Yes Hx Pneumonia: Yes - CARDIOVASCULAR Hx Cardio Disorders: Yes Hx Hypertension: Yes - NEURO Hx Neuro Disorders: Yes Hx Headaches: Yes (migraines since age 18) - GI Hx GI Disorders: Yes Hx Reflux: Yes Hx Irritable Bowel: Yes Hx Wt Loss/Wt Gain: No (after bariatric surgery) - Hx Genitourinary Disorders: Yes Hx Bladder Problem: Yes (stress incontinencs) Comment:: hysterectomy - ENDOCRINE Hx Endocrine Disorders: No Hx Diabetes: No Hx Thyroid Disease: No - MUSCULOSKELETAL Hx Musculoskeletal Disorders: Yes Hx Arthritis: Yes Hx Fibromyalgia: Yes - PSYCH Hx Psych Problems: Yes Hx Anxiety: Yes Hx Depression: Yes - HEMATOLOGY/ONCOLOGY Hx Hematology/Oncology Disorders: Yes 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) Hx Blood Transfusions: Yes Hx Blood Transfusion Reaction: No Family Medical History Any Significant Family History?: Yes Hx Anxiety: Mother Hx Cancer: Mother, Grandparents Hx Depression: Mother Hx Diabetes: Mother, Grandparents Hx Heart Disease: Father, Mother, Grandparents Hx HTN: Father, Mother, Grandparents Hx Stroke: Father, Grandparents H&P Meds/Allergies - Allergies Allergies: Allergies Allergy/AdvReac Type Severity Reaction Status Date / Time levofloxacin [From Levaquin] Allergy ITCHING Verified 09/11/18 08:56 morphine Allergy ITCHING Verified 08/25/18 17:41 haloperidol [From Haldol] AdvReac FATIGUE Verified 08/25/18 17:41 haloperidol lactate AdvReac FATIGUE Verified 08/25/18 17:41 [From Haldol] - Home Medications Home Medications Medication Instructions Recorded Confirmed Last Taken Amlodipine Besylate 5 mg PO DAILY 09/11/18 09/11/18 Unknown Dicyclomine HCl 10 mg PO WMEALS 09/11/18 09/11/18 Unknown Hydrocodone/Acetaminophen [[place] 1 each PO BID 09/11/18 09/11/18 Unknown 7.5-325 Tablet] Previous Rx's Medication Instructions Recorded Ipratropium/Albuterol [Duoneb] 3 ml INH RESP.Q4H PRN #20 ampul.neb 08/22/18 Tramadol HCl [Ultram] 50 mg PO Q6H PRN #10 tablet 08/22/18 - Active Medications Active Medications: Current Medications Acetaminophen (Tylenol 325mg) 650 mg PO Q4H PRN PRN Reason: PAIN - MILD(1-4)/FEVER Albuterol/Ipratropium (Duoneb) 3 ml INH RESP.Q4H.[facility] Last Admin: 09/11/18 11:07 Dose: 3 ml Documented by: Fluoxetine HCl (Prozac) 20 mg PO DAILY [facility] Ceftriaxone Sodium 1 gm/ (Sodium Chloride) 100 mls @ 100 mls/hr IVPB Q12H JULIEN Stop: 09/16/18 10:22 Azithromycin 500 mg/ Sodium (Chloride) 250 mls @ 250 mls/hr IVPB Q24H [facility] Stop: 09/17/18 09:01 Methylprednisolone Sodium Succinate (Solu-Medrol) 60 mg IVP DAILY [facility] Non-Formulary Medication (Amlodipine Besylate [Norvasc]) 10 mg PO DAILY [facility] Non-Formulary Medication (Buspirone Hcl [Buspar]) 15 mg PO BID [facility] Non-Formulary Medication (Dicyclomine Hcl [Dicyclomine Hcl]) 20 mg PO QIDWMHS [facility] Non-Formulary Medication (Lisinopril/Hydrochlorothiazide [Lisinopril-Hctz 20- 12.5 Mg Tab]) 1 each PO BID [facility] Non-Formulary Medication (Omeprazole [Omeprazole]) 40 mg PO DAILY [facility] Non-Formulary Medication (Ondansetron Hcl) 4 mg PO Q4H PRN PRN Reason: NAUSEA Non-Formulary Medication (Pregabalin [Lyrica]) 150 mg PO BID [facility] Olanzapine (Zyprexa) 5 mg PO DAILY [facility] Tramadol HCl (Ultram) 50 mg PO Q6H PRN PRN Reason: PAIN - MODERATE (5-7) Physical Exam - Vital Signs Vital Signs: Vital Signs - Last 24 Hrs Temp Pulse Pulse Resp BP BP Pulse Ox 09/11/18 11:04 80 20 95 09/11/18 10:25 98.6 F 107 H 18 130/83 97 09/11/18 08:49 99.3 F 110 H 112 H 24 143/97 95 09/11/18 07:19 99.8 F H 09/11/18 07:16 119 H 20 95 09/11/18 07:08 131 H 40 H 158/104 85 L 09/11/18 07:06 99.8 F H 127 H 40 H 158/104 85 L - General General Appearance: Alert, Oriented x3, Cooperative, No acute distress Limitations: No limitations - Head Head exam: Atraumatic, Normocephalic - Eye Eye exam: Normal appearance, PERRL - ENT Throat exam: Normal inspection. negative: Tonsillar erythema, Tonsillar exudate - Neck Neck exam: Normal inspection, Full ROM. negative: Tenderness - Respiratory Respiratory exam: Rhonchi, Wheezes. negative: Normal lung sounds bilaterally, Accessory muscle use, Decreased breath sounds, Prolonged expiratory, Respiratory distress - Cardiovascular Cardiovascular Exam: Regular rate, Normal rhythm, Normal heart sounds, Tachycardia Peripheral Pulses: 3+: Radial (R), Radial (L), Dorsalis Pedis (R), Dorsalis Pedis (L) - GI/Abdominal GI/Abdominal exam: Soft, Normal bowel sounds. negative: Tenderness - Extremities Extremities exam: Normal inspection, Full ROM, Normal capillary refill. negative: Tenderness - Back Back exam: Reports: Normal inspection - Neurological Neurological exam: Alert, Normal gait. negative: Abnormal gait, Motor sensory deficit - Psychiatric Psychiatric exam: Agitated. negative: Anxious - Skin Skin exam: Dry, Intact, Warm Results - Labs Result Diagrams: 09/12/18 06:23 09/12/18 06:23 Labs Last 24 Hours: Laboratory Results - last 24 hr 09/11/18 09/11/18 09/11/18 07:15 07:15 07:15 WBC 15.3 H RBC 5.04 Hgb 12.6 Hct 41.0 MCV 81.3 MCH 25.0 L MCHC 30.7 L RDW 16.4 H Plt Count 434 H MPV 10.1 Neutrophils % 77.0 Band Neutrophils % 7.0 H Eosinophils % Not Reportable Basophils % Not Reportable Absolute Neutrophils 12.69 Lymphocytes 13.0 L Monocytes 2.0 Platelet Estimate Normal RBC Morphology Normal Eosinophil Count 1.0 Sodium 144 Potassium 3.7 Chloride 105 Carbon Dioxide 24.0 Anion Gap 15.0 BUN 18 Creatinine 1.0 H Estimated GFR > 60 Random Glucose 164 H Lactic Acid 2.9 H Calcium 9.6 Total Bilirubin 0.30 AST 14 ALT 12 Alkaline Phosphatase 149 H Troponin T < 0.010 NT-Pro-B Natriuret Pep Total Protein 7.8 Albumin 4.5 Globulin 3.3 Albumin/Globulin Ratio 1.4 Procalcitonin 0.097 09/11/18 07:15 WBC RBC Hgb Hct MCV MCH MCHC RDW Plt Count MPV Neutrophils % Band Neutrophils % Eosinophils % Basophils % Absolute Neutrophils Lymphocytes Monocytes Platelet Estimate RBC Morphology Eosinophil Count Sodium Potassium Chloride Carbon Dioxide Anion Gap BUN Creatinine Estimated GFR Random Glucose Lactic Acid Calcium Total Bilirubin AST ALT Alkaline Phosphatase Troponin T NT-Pro-B Natriuret Pep 68.72 Total Protein Albumin Globulin Albumin/Globulin Ratio Procalcitonin - Imaging and Cardiology Chest x-ray Status: Report reviewed VTE H&P Assessment - Risk for VTE Risk for VTE: Yes Risk Level: Moderate Risk Assessment Date: 09/11/18 Risk Assessment Time: 19:34 VTE Orders Placed or Will Be Placed: Yes Plan - Inpatient Certification Inpatient Certification: Admit to inpatient care: Based on my medical assessment, after consideration of patient's risk factors (age, co-morbidities and patient presenting symptoms and acuity), I expect that this patient will remain in the hospital greater than or equal to two midnights and that the services needed warrant inpatient care because: Patient Risk Factors: Estimated length of stay: The patient may reasonably be expected to be discharged or transferred to a hospital within 96 hours after admission to [facility]. Services needed: IV abx, neb tx, labs, oxygen therapy Post hospital care (if known): [] I certify that my determination is in accordance with my understanding of Medicare requirements for reasonable and necessary inpatient services. 09/11/18 19:35 - Detailed Diagnosis and Plan (1) CAP (community acquired pneumonia) Current Visit: Yes Status: Acute Qualifiers: Laterality: right Lung location: lower lobe of lung Qualified Code(s): J18.1 - Lobar pneumonia, unspecified organism Base Code: J18.9 - PNEUMONIA, UNSPECIFIED ORGANISM Comment: 09/11/18 -CXR RLL PNA, failed outpt tx -[place], azithromycin, steroids, alb neb tx -norco for pain, pt was orgininally getting ultram but continued to report uncontrolled pain, MAPS reviewed and pt takes norco 7.5/325 BID at home, treatment continued - supplemental oxygen PRN (2) DVT prophylaxis Current Visit: No Status: Acute Base Code: Z29.9 - ENCOUNTER FOR PROPHYLACTIC MEASURES, UNSPECIFIED Comment: 09/11/18: -Moderate risk this admission due to hospitalization and illness -Encourage ambulation within the room -Lovenox 40mg SQ daily (3) Full code status Current Visit: No Status: Acute Base Code: Z78.9 - OTHER SPECIFIED HEALTH STATUS Comment: 09/11/18: -Patient is a full code this admission
[2018-09-11] MEDS ORDERED: ONDANSETRON 4 MG ODT TABLET SL PRN (11:15)
[2018-09-11] MEDS ORDERED: DICYCLOMINE HCL 10 MG CAPSULE PO SCH (12:30)
[2018-09-11] MEDS: FLUOXETINE HCL 20 MG CAPSULE PO SCH (12:56)
[2018-09-11] MEDS: PREGABALIN 50 MG CAPSULE PO SCH ×2 (12:56→21:30)
[2018-09-11] MEDS: OLANZAPINE 5MG TABLET PO SCH (13:00)
[2018-09-11] MEDS: NICOTINE14 MG/24 HOUR PATCH TD SCH (14:00)
[2018-09-11] MEDS: DIPHENHYDRAMINE HCL 25 MG CAPSULE PO PRN ×2 (17:26→23:25)
[2018-09-11] MEDS: DICYCLOMINE HCL 10 MG CAPSULE PO SCH (17:35)
[2018-09-11] MEDS: HYDROCODONE/APAP 7.5/325MG TABLET PO PRN (19:20)
[2018-09-11] MEDS: CEFTRIAXONE 1GM/50ML BAG 1 GM/50 ML BAG IVPB SCH (21:30)
[2018-09-11] MEDS: LISINOPRIL 20 MG TABLET PO SCH (21:31)
[2018-09-11] MEDS: PREGABALIN (LYRICA) 100MG CAPSULE PO SCH (21:31)
[2018-09-11] MEDS: BUSPIRONE 5 MG TABLET PO SCH (21:31)
[2018-09-11] MEDS: HYDROCHLOROTHIAZIDE 12.5 MG CAPSULE PO SCH (21:31)
[2018-09-12] MEDS: IPRATROPIUM/ALBUTEROL (0.5MG/3MG) NEB INH SCH ×4 (05:16→18:17)
[2018-09-12 06:33] LABS: ABSOLUTE NEUTROPHIL COUNT 18.41; HEMATOCRIT 33.4 % (35.0-47.0); HEMOGLOBIN 10.1 gm/dl (11.6-16.0); MEAN CELL VOLUME 82.1 fl (81-97); MEAN CORPUSCULAR HEMOGLOBIN 24.8 pg (27-33); MEAN CORPUSCULAR HGB CONC 30.2 g/dl (32-36); MEAN PLATELET VOLUME 9.8 fl (7.4-10.4); PLATELET COUNT 316 K/uL (130-400); RED BLOOD COUNT 4.07 M/uL (3.80-5.40)
[2018-09-12 06:40] LABS: WHITE BLOOD COUNT W/O DIFF 20.5 K/uL (4.2-12.2)
[2018-09-12 06:50] LABS: ALB/GLOB RATIO 1.2 (1.1-1.8); ALBUMIN 3.5 g/dL (4.0-5.0); ALKALINE PHOSPHATASE 121 U/L (35-104); ALT/SGPT 22 U/L (<33); AST/SGOT 34 U/L (10.0-35.0); BLOOD UREA NITROGEN 11 mg/dL (6-20); CREATININE 0.9 mg/dL (0.5-0.9); EST GLOMERULAR FILTRATION RATE > 60 mL/min; GLUCOSE,RANDOM 234 mg/dL (74-109); TOTAL PROTEIN 6.5 g/dL (6.6-8.7)
[2018-09-12] MEDS ORDERED: PANTOPRAZOLE SODIUM 40 MG TABLET PO SCH (07:00)
--- NOTE | 2018-09-12 07:14 | RADIOLOGY REPORT ---
EXAM: CHEST, TWO VIEWS HISTORY: RIGHT SIDED CHEST PRESSURE WITH FEVER AND SHORTNESS OF BREATH FOR THE PAST TWO DAYS. TECHNIQUE: AP and lateral upright views of the chest were obtained. Comparison: 08/25/18. FINDINGS: There are low lung volumes. The heart, mediastinum, and pulmonary vasculature are normal. There is focal infiltrate within the medial aspect of the right lung base consistent with developing pneumonia. Very minor atelectasis or infiltrate is also noted at the left lung base. The upper lung woods are clear. There is no pneumothorax or effusion. The bones appear intact. IMPRESSION: 1. RIGHT BASILAR INFILTRATE CONSISTENT WITH PNEUMONIA. 2. MINOR ATELECTASIS OR INFILTRATE AT THE LEFT LUNG BASE. JOB NUMBER: [id number] [facility]
[2018-09-12] MEDS: DICYCLOMINE HCL 10 MG CAPSULE PO SCH ×3 (08:07→17:29)
[2018-09-12] MEDS ORDERED: AZITHROMYCIN 500 MG in 0.9 % SODIUM CHLORIDE 250ML 250 ML IVPB SCH (09:00)
[2018-09-12] MEDS: BREO (FLUTICASONE/VILANTEROL) 100MCG/25MCG INHALER INH ONE ×2 (09:44→09:50)
[2018-09-12] MEDS ORDERED: AZITHROMYCIN 500 MG TABLET PO SCH (10:00)
[2018-09-12] MEDS ORDERED: ZYVOX (LINEZOLID) 600MG/300 ML 600 MG/300 ML BAG IVPB SCH ×2 (10:00→11:00)
[2018-09-12] MEDS ORDERED: METHYLPREDNISOLONE PF 125MG/VIAL IVP SCH (10:00)
[2018-09-12] MEDS ORDERED: AMLODIPINE BESYLATE 5MG TAB PO SCH (10:00)
[2018-09-12] MEDS ORDERED: ENOXAPARIN 40 MG/0.4 ML SYR SQ SCH (10:00)
[2018-09-12] MEDS ORDERED: POTASSIUM CHL 20MEQ IN 1L NS 20 MEQ/1,000 ML BAG IV ONE (10:10)
[2018-09-12] MEDS: BUSPIRONE 5 MG TABLET PO SCH (10:13)
[2018-09-12] MEDS: CEFTRIAXONE 1GM/50ML BAG 1 GM/50 ML BAG IVPB SCH (10:14)
[2018-09-12] MEDS: HYDROCHLOROTHIAZIDE 12.5 MG CAPSULE PO SCH (10:15)
[2018-09-12] MEDS: PREGABALIN (LYRICA) 100MG CAPSULE PO SCH (10:16)
[2018-09-12] MEDS: FLUOXETINE HCL 20 MG CAPSULE PO SCH (10:16)
[2018-09-12] MEDS: NICOTINE14 MG/24 HOUR PATCH TD SCH (10:16)
[2018-09-12] MEDS: PREGABALIN 50 MG CAPSULE PO SCH (10:16)
[2018-09-12] MEDS: LISINOPRIL 20 MG TABLET PO SCH (10:17)
[2018-09-12] MEDS: OLANZAPINE 5MG TABLET PO SCH (10:17)
[2018-09-12] MEDS: HYDROCODONE/APAP 7.5/325MG TABLET PO PRN (10:33)
--- NOTE | 2018-09-12 10:58 | Physician Progress Note ---
Subjective - Date Date of Physician Progress Note: 09/12/18 Objective - Multidiciplinary Team Multidiciplinary Team: Case Management, Nursing, RT - Vital Signs Vital Signs: Vital Signs - Last 24 Hrs Temp Pulse Pulse Resp BP Pulse Ox 09/12/18 09:59 115 H 20 95 09/12/18 09:49 116 H 20 92 L 09/12/18 08:00 109 H 22 152/86 91 L 09/12/18 07:47 102 H 22 89 L 09/12/18 05:50 113 H 22 91 L 09/12/18 05:17 107 H 18 92 L 09/12/18 04:00 97.8 F 103 H 22 147/87 89 L 09/12/18 00:00 97.8 F 97 H 20 111/70 91 L 09/11/18 22:12 99 H 18 92 L 09/11/18 21:58 97 H 18 95 09/11/18 20:30 20 09/11/18 20:00 97.8 F 91 H 20 100/56 96 09/11/18 18:14 106 H 20 99 09/11/18 16:00 99.3 F 93 H 18 123/69 95 09/11/18 13:46 111 H 18 99 09/11/18 12:00 98.9 F 99 H 18 132/79 96 09/11/18 11:05 85 20 95 09/11/18 11:04 80 20 95 - General General Appearance: Alert, Oriented x3, Cooperative, Mild distress Limitations: No limitations - Head Head exam: Atraumatic, Normocephalic - Eye Eye exam: Normal appearance, PERRL - ENT ENT exam: Normal exam, Mucous membranes moist Ear exam: Normal external inspection Mouth exam: Normal external inspection Throat exam: Normal inspection. negative: Tonsillar erythema, Tonsillar exudate - Neck Neck exam: Normal inspection, Full ROM. negative: Tenderness - Respiratory Respiratory exam: Decreased breath sounds, Respiratory distress, Rhonchi, Wheezes. negative: Normal lung sounds bilaterally, Accessory muscle use, Prolonged expiratory - Cardiovascular Cardiovascular Exam: Regular rate, Normal rhythm, Normal heart sounds, Tachycardia Peripheral Pulses: 3+: Radial (R), Radial (L), Dorsalis Pedis (R), Dorsalis Pe dis (L) - GI/Abdominal GI/Abdominal exam: Soft, Normal bowel sounds. negative: Tenderness - Rectal Rectal exam: Deferred - exam: Deferred - Extremities Extremities exam: Normal inspection, Full ROM, Normal capillary refill. negative: Tenderness - Back Back exam: Reports: Normal inspection - Neurological Neurological exam: Alert, Normal gait. negative: Abnormal gait, Motor sensory deficit - Psychiatric Psychiatric exam: Agitated. negative: Anxious - Skin Skin exam: Dry, Intact, Warm Assessment and Plan - Assessment and Plan (1) CAP (community acquired pneumonia) Current Visit: Yes Status: Acute Qualifiers: Laterality: right Lung location: lower lobe of lung Qualified Code(s): J1 8.1 - Lobar pneumonia, unspecified organism Base Code: J18.9 - PNEUMONIA, UNSPECIFIED ORGANISM Comment: 09/12/18 -pt has increased need for O2, WBC 15.3->20.5 -procalcitonin 0.097->0.077->2.38 -BC x2 obtained, added Linzolid BID to current rocephin and azith -continue supplementary O2 to maintain sats 92-98% -home ICS/LABA restarted, continue IVP steroids, duo neb txs -repeat CXR tomorrow 09/11/18 -CXR RLL PNA, failed outpt tx -[place], azithromycin, steroids, alb neb tx -norco for pain, pt was orgininally getting ultram but continued to report uncontrolled pain, MAPS reviewed and pt takes norco 7.5/325 BID at home, treatment continued - supplemental oxygen PRN (2) Elevated blood sugar Current Visit: Yes Status: Acute Base Code: R73.9 - HYPERGLYCEMIA, UNSPECIFIED Comment: 09/12/18 -pt has h/o DM previous to gastric bypass surgery, has not had a need for metformin since then -elevated blood sugars with illness and steroid use -low dose s/s insulin added, no metformin r/t current level of infection (3) DVT prophylaxis Current Visit: No Status: Acute Base Code: Z29.9 - ENCOUNTER FOR PROPHYLACTIC MEASURES, UNSPECIFIED Comment: 09/12/18: -Moderate risk this admission due to hospitalization and illness -Encourage ambulation within the room -Lovenox 40mg SQ daily (4) Full code status Current Visit: No Status: Acute Base Code: Z78.9 - OTHER SPECIFIED HEALTH STATUS Comment: 09/12/18: -Patient is a full code this admission Results - Labs Result Diagrams: 09/12/18 06:23 09/12/18 06:23 Labs Last 24 Hours: Laboratory Results - last 24 hr 09/12/18 09/12/18 09/12/18 06:23 06:23 09:08 WBC 20.5 H* RBC 4.07 Hgb 10.1 L Hct 33.4 L MCV 82.1 MCH 24.8 L MCHC 30.2 L RDW 16.0 H Plt Count 316 MPV 9.8 Neutrophils % 91.0 H Eosinophils % Not Reportable Basophils % Not Reportable Absolute Neutrophils 18.41 Lymphocytes 7.0 L Monocytes 2.0 Sodium 142 Potassium 3.5 Chloride 106 Carbon Dioxide 24.0 Anion Gap 12.0 BUN 11 Creatinine 0.9 Estimated GFR > 60 Random Glucose 234 H Calcium 8.4 L Total Bilirubin 0.20 AST 34 ALT 22 Alkaline Phosphatase 121 H Total Protein 6.5 L Albumin 3.5 L Globulin 3.0 Albumin/Globulin Ratio 1.2 Procalcitonin 0.077 09/12/18 09:10 WBC RBC Hgb Hct MCV MCH MCHC RDW Plt Count MPV Neutrophils % Eosinophils % Basophils % Absolute Neutrophils Lymphocytes Monocytes Sodium Potassium Chloride Carbon Dioxide Anion Gap BUN Creatinine Estimated GFR Random Glucose Calcium Total Bilirubin AST ALT Alkaline Phosphatase Total Protein Albumin Globulin Albumin/Globulin Ratio Procalcitonin 2.38 DVT/PE Assessment - Risk for VTE Risk for VTE: No Risk Level: Moderate Risk Assessment Date: 09/11/18 Risk Assessment Time: 19:34 VTE Orders Placed or Will Be Placed: Yes - Active Medicaitons Current Medications: Current Medications Hydrocodone Bitart/Acetaminophen ([place] 7.5mg/325mg) 1 each PO Q12H PRN PRN Reason: PAIN - MILD TO MODERATE (1-7) Last Admin: 09/12/18 10:33 Dose: 1 each Documented by: Albuterol/Ipratropium (Duoneb) 3 ml INH RESP.Q4H.[facility] Last Admin: 09/12/18 09:44 Dose: 3 ml Documented by: Amlodipine Besylate (Norvasc) 5 mg PO DAILY [facility] Last Admin: 09/12/18 10:16 Dose: 5 mg Documented by: Azithromycin (Zithromax) 500 mg PO DAILY [facility] Last Admin: 09/12/18 10:17 Dose: 500 mg Documented by: Buspirone HCl (Buspar) 30 mg PO BID [facility] Last Admin: 09/12/18 10:13 Dose: 30 mg Documented by: Dicyclomine HCl (Bentyl) 10 mg PO WMEALS [facility] Last Admin: 09/12/18 08:07 Dose: 10 mg Documented by: Diphenhydramine HCl (Benadryl Capsule) 50 mg PO Q6H PRN PRN Reason: ITCHING Last Admin: 09/11/18 23:25 Dose: 50 mg Documented by: Enoxaparin Sodium (Lovenox) 40 mg SQ DAILY [facility] Last Admin: 09/12/18 10:15 Dose: 40 mg Documented by: Fluoxetine HCl (Prozac) 20 mg PO DAILY [facility] Last Admin: 09/12/18 10:16 Dose: 20 mg Documented by: Hydrochlorothiazide (Hctz 12.5mg) 12.5 mg PO BID [facility] Last Admin: 09/12/18 10:15 Dose: 12.5 mg Documented by: CEFTRIAXONE 1GM/50ML BAG (Ceftriaxone 1 Gm-D5w Bag) 1 gm in 50 mls @ 100 mls/hr IVPB Q12HR [facility] Last Admin: 09/12/18 10:14 Dose: 100 mls/hr Documented by: Potassium Chloride/Sodium Chloride ( Potassium Chl 20meq/) 20 meq in 1,000 mls @ 125 mls/hr IV Q8H ONE Stop: 09/12/18 18:09 Linezolid (Zyvox) 600 mg in 300 mls @ 300 mls/hr IVPB Q12H [facility] Lisinopril (Zestril) 20 mg PO BID [facility] Last Admin: 09/12/18 10:17 Dose: 20 mg Documented by: Methylprednisolone Sodium Succinate (Solu-Medrol) 60 mg IVP DAILY [facility] Last Admin: 09/12/18 10:17 Dose: 60 mg Documented by: Nicotine (Nicotine 14mg) 1 patch TD DAILY [facility] Last Admin: 09/12/18 10:16 Dose: 1 patch Documented by: Olanzapine (Zyprexa) 5 mg PO DAILY [facility] Last Admin: 09/12/18 10:17 Dose: 5 mg Documented by: Ondansetron HCl (Zofran Odt) 4 mg SL Q4H PRN PRN Reason: NAUSEA Pantoprazole Sodium (Protonix) 40 mg PO DAILYAC [facility] Last Admin: 09/12/18 06:07 Dose: 40 mg Documented by: Pregabalin (Lyrica) 100 mg PO BID [facility] Last Admin: 09/12/18 10:16 Dose: 100 mg Documented by: Pregabalin (Lyrica) 50 mg PO BID [facility] Last Admin: 09/12/18 10:16 Dose: 50 mg Documented by: AMI Plan - Labs Result Diagrams: 09/12/18 06:23 09/12/18 06:23
[2018-09-12] MEDS ORDERED: BREO (FLUTICASONE/VILANTEROL) 100MCG/25MCG INHALER INH SCH (11:00)
--- NOTE | 2018-09-12 12:47 | Physician Progress Note ---
Subjective - Date Date of Physician Progress Note: 09/12/18 - Subjective Subjective Comment: pt reported sudden shortness of breath, VS obtained, O2 sat high 70s after pt completed some basic ADLs with nursing staff. Increased O2 to 6L NC and pt 78% but drops with conversation. Pt is A&Ox3, skin warm and dry, lips appear purple and pt is anxious. at bedside. Pt has noted shortness of breath and not able to tolerate full sentence conversation. Objective - Multidiciplinary Team Multidiciplinary Team: Case Management, Nursing, RT - Vital Signs Vital Signs: Vital Signs - Last 24 Hrs Temp Pulse Pulse Resp BP Pulse Ox 09/12/18 09:59 115 H 20 95 09/12/18 09:49 116 H 20 92 L 09/12/18 08:00 109 H 22 152/86 91 L 09/12/18 07:47 102 H 22 89 L 09/12/18 05:50 113 H 22 91 L 09/12/18 05:17 107 H 18 92 L 09/12/18 04:00 97.8 F 103 H 22 147/87 89 L 09/12/18 00:00 97.8 F 97 H 20 111/70 91 L 09/11/18 22:12 99 H 18 92 L 09/11/18 21:58 97 H 18 95 09/11/18 20:30 20 09/11/18 20:00 97.8 F 91 H 20 100/56 96 09/11/18 18:14 106 H 20 99 09/11/18 16:00 99.3 F 93 H 18 123/69 95 09/11/18 13:46 111 H 18 99 - General General Appearance: Alert, Oriented x3, Cooperative, Moderate distress Limitations: No limitations - Head Head exam: Atraumatic, Normocephalic - Eye Eye exam: Normal appearance, PERRL - ENT ENT exam: Normal exam, Mucous membranes moist Ear exam: Normal external inspection Mouth exam: Normal external inspection Throat exam: Normal inspection. negative: Tonsillar erythema, Tonsillar exudate - Neck Neck exam: Normal inspection, Full ROM. negative: Tenderness - Respiratory Respiratory exam: Decreased breath sounds, Respiratory distress, Rhonchi, Wheezes. negative: Normal lung sounds bilaterally, Accessory muscle use, Prolonged expiratory - Cardiovascular Cardiovascular Exam: Regular rate, Normal rhythm, Normal heart sounds, Tachycardia Peripheral Pulses: 3+: Radial (R), Radial (L), Dorsalis Pedis (R), Dorsalis Pedis (L) - GI/Abdominal GI/Abdominal exam: Soft, Normal bowel sounds. negative: Tenderness - Rectal Rectal exam: Deferred - exam: Deferred - Extremities Extremities exam: Normal inspection, Full ROM, Normal capillary refill. negative: Tenderness - Back Back exam: Reports: Normal inspection - Neurological Neurological exam: Alert, Normal gait. negative: Abnormal gait, Motor sensory deficit - Psychiatric Psychiatric exam: Agitated. negative: Anxious - Skin Skin exam: Dry, Intact, Warm Assessment and Plan - Assessment and Plan (1) CAP (community acquired pneumonia) Current Visit: Yes Status: Acute Qualifiers: Laterality: right Lung location: lower lobe of lung Qualified Code(s): J18.1 - Lobar pneumonia, unspecified organism Base Code: J18.9 - PNEUMONIA, UNSPECIFIED ORGANISM Comment: 09/12/18 -pt has increased need for O2, WBC 15.3->20.5 -procalcitonin 0.097->0.077->2.38 -BC x2 obtained, added Linzolid BID to current rocephin and azith -continue supplementary O2 to maintain sats 92-98% -home ICS/LABA restarted, continue IVP steroids, duo neb txs -repeat CXR tomorrow 09/11/18 -CXR RLL PNA, failed outpt tx -Rocpehin, azithromycin, steroids, alb neb tx -norco for pain, pt was orgininally getting ultram but continued to report uncontrolled pain, MAPS reviewed and pt takes norco 7.5/325 BID at home, treatment continued - supplemental oxygen PRN (2) Fluid overload Current Visit: Yes Status: Acute Base Code: E87.70 - FLUID OVERLOAD, UNSPECIFIED Comment: 09/12/18 -sudden onset shortness of breath, repeat CXR shows fluid over load vs CHF -echo ordered, IVF stopped -Lasix 40mg IVP BID -K 20 mEq BID (3) Elevated blood sugar Current Visit: Yes Status: Acute Base Code: R73.9 - HYPERGLYCEMIA, UNSPECIFIED Comment: 09/12/18 -pt has h/o DM previous to gastric bypass surgery, has not had a need for metformin since then -elevated blood sugars with illness and steroid use -low dose s/s insulin added, no metformin r/t current level of infection (4) DVT prophylaxis Current Visit: No Status: Acute Base Code: Z29.9 - ENCOUNTER FOR PROPHYLACTIC MEASURES, UNSPECIFIED Comment: 09/12/18: -Moderate risk this admission due to hospitalization and illness -Encourage ambulation within the room -Lovenox 40mg SQ daily (5) Full code status Current Visit: No Status: Acute Base Code: Z78.9 - OTHER SPECIFIED HEALTH STATUS Comment: 09/12/18: -Patient is a full code this admission Results - Labs Result Diagrams: 09/12/18 06:23 09/12/18 06:23 Labs Last 24 Hours: Laboratory Results - last 24 hr 09/12/18 09/12/18 09/12/18 06:23 06:23 09:08 WBC 20.5 H* RBC 4.07 Hgb 10.1 L Hct 33.4 L MCV 82.1 MCH 24.8 L MCHC 30.2 L RDW 16.0 H Plt Count 316 MPV 9.8 Neutrophils % 91.0 H Eosinophils % Not Reportable Basophils % Not Reportable Absolute Neutrophils 18.41 Lymphocytes 7.0 L Monocytes 2.0 Sodium 142 Potassium 3.5 Chloride 106 Carbon Dioxide 24.0 Anion Gap 12.0 BUN 11 Creatinine 0.9 Estimated GFR > 60 POC Glucose Random Glucose 234 H Calcium 8.4 L Total Bilirubin 0.20 AST 34 ALT 22 Alkaline Phosphatase 121 H Total Protein 6.5 L Albumin 3.5 L Globulin 3.0 Albumin/Globulin Ratio 1.2 Procalcitonin 0.077 09/12/18 09/12/18 09:10 11:40 WBC RBC Hgb Hct MCV MCH MCHC RDW Plt Count MPV Neutrophils % Eosinophils % Basophils % Absolute Neutrophils Lymphocytes Monocytes Sodium Potassium Chloride Carbon Dioxide Anion Gap BUN Creatinine Estimated GFR POC Glucose 197 H Random Glucose Calcium Total Bilirubin AST ALT Alkaline Phosphatase Total Protein Albumin Globulin Albumin/Globulin Ratio Procalcitonin 2.38 DVT/PE Assessment - Risk for VTE Risk for VTE: No Risk Level: Moderate Risk Assessment Date: 09/11/18 Risk Assessment Time: 19:34 VTE Orders Placed or Will Be Placed: Yes - Active Medicaitons Current Medications: Current Medications Hydrocodone Bitart/Acetaminophen ([place] 7.5mg/325mg) 1 each PO Q12H PRN PRN Reason: PAIN - MILD TO MODERATE (1-7) Last Admin: 09/12/18 10:33 Dose: 1 each Documented by: Albuterol/Ipratropium (Duoneb) 3 ml INH RESP.Q4H.WA [facility] Last Admin: 09/12/18 09:44 Dose: 3 ml Documented by: Amlodipine Besylate (Norvasc) 5 mg PO DAILY [facility] Last Admin: 09/12/18 10:16 Dose: 5 mg Documented by: Azithromycin (Zithromax) 500 mg PO DAILY [facility] Last Admin: 09/12/18 10:17 Dose: 500 mg Documented by: Buspirone HCl (Buspar) 30 mg PO BID [facility] Last Admin: 09/12/18 10:13 Dose: 30 mg Documented by: Dicyclomine HCl (Bentyl) 10 mg PO WMEALS [facility] Last Admin: 09/12/18 08:07 Dose: 10 mg Documented by: Diphenhydramine HCl (Benadryl Capsule) 50 mg PO Q6H PRN PRN Reason: ITCHING Last Admin: 09/11/18 23:25 Dose: 50 mg Documented by: Enoxaparin Sodium (Lovenox) 40 mg SQ DAILY [facility] Last Admin: 09/12/18 10:15 Dose: 40 mg Documented by: Fluoxetine HCl (Prozac) 20 mg PO DAILY [facility] Last Admin: 09/12/18 10:16 Dose: 20 mg Documented by: Furosemide (Lasix Iv) 40 mg IVP BIDDIUR [facility] Hydrochlorothiazide (Hctz 12.5mg) 12.5 mg PO BID [facility] Last Admin: 09/12/18 10:15 Dose: 12.5 mg Documented by: CEFTRIAXONE 1GM/50ML BAG (Ceftriaxone 1 Gm-D5w Bag) 1 gm in 50 mls @ 100 mls/hr IVPB Q12HR [facility] Last Admin: 09/12/18 10:14 Dose: 100 mls/hr Documented by: Linezolid (Zyvox) 600 mg in 300 mls @ 300 mls/hr IVPB Q12H [facility] Last Admin: 09/12/18 11:40 Dose: 300 mls/hr Documented by: Insulin Aspart (Novolog Flexpen) 1 unit SQ TIDINS [facility]; Protocol Lisinopril (Zestril) 20 mg PO BID [facility] Last Admin: 09/12/18 10:17 Dose: 20 mg Documented by: Lorazepam (Ativan) 1 mg IV Q6H PRN PRN Reason: ANXIETY Methylprednisolone Sodium Succinate (Solu-Medrol) 60 mg IVP DAILY [facility] Last Admin: 09/12/18 10:17 Dose: 60 mg Documented by: Nicotine (Nicotine 14mg) 1 patch TD DAILY [facility] Last Admin: 09/12/18 10:16 Dose: 1 patch Documented by: Olanzapine (Zyprexa) 5 mg PO DAILY [facility] Last Admin: 09/12/18 10:17 Dose: 5 mg Documented by: Ondansetron HCl (Zofran Odt) 4 mg SL Q4H PRN PRN Reason: NAUSEA [facility] Admin: 09/12/18 06:07 Dose: 40 mg Documented by: Pregabalin (Lyrica) 100 mg PO BID [facility] Last Admin: 09/12/18 10:16 Dose: 100 mg Documented by: Pregabalin (Lyrica) 50 mg PO BID [facility] Last Admin: 09/12/18 10:16 Dose: 50 mg Documented by: PAOLO Plan - Labs Result Diagrams: 09/12/18 06:23 09/12/18 06:23
[2018-09-12] MEDS ORDERED: POTASSIUM CHLORIDE 20 MEQ TABLET PO SCH (13:15)
[2018-09-12] MEDS: LORAZEPAM 2 MG/ML VIAL IV PRN ×2 (13:15→19:06)
[2018-09-12] MEDS: FUROSEMIDE IV 40MG/4ML VIAL IVP SCH ×2 (13:23→17:31)
[2018-09-12] MEDS: NOVOLOG FLEXPEN (INSULIN ASPART) 100 UNITS/ML SQ SCH ×2 (13:24→17:29)
[2018-09-12 13:42] LABS: ARTERIAL BLOOD GAS PCO2 33.7 mmHg (35-48); ARTERIAL BLOOD GAS pH 7.44 (7.35-7.45)
[2018-09-12 13:43] LABS: ARTERIAL BLOOD GAS BASE EXCESS -0.8 mmol/L (-2 - 3); ARTERIAL BLOOD GAS HCO3 22.5 mmol/L (18-23); CARBOXYHEMOGLOBIN 1.9 % (0-1.5); METHEMOGLOBIN 1.7 % (0.0-1.5)
[2018-09-12 13:44] LABS: ALLEN TEST PASS
[2018-09-12 13:45] LABS: ARTERIAL BLD GAS O2 SATURATION 83.9 % (95-98)
[2018-09-12 13:46] LABS: O2 HEMOGLOBIN 80.9 % vol (94-99)
[2018-09-12] MEDS: DIPHENHYDRAMINE HCL 25 MG CAPSULE PO PRN (15:45)
--- NOTE | 2018-09-12 19:40 | Discharge Summary ---
Providers Discharge Summary Date: 09/12/18 Date of admission: 09/11/18 09:58 Expected Date of Discharge: 09/12/18 Attending physician: HARJIT CARLIN Primary care physician: ELY CARLSON M.D. Physical Exam - Vital Signs Vital Signs: Vital Signs - Last 24 Hrs Temp Pulse Pulse Resp BP Pulse Ox 09/12/18 19:12 99.5 F 110 H 26 H 116/67 93 L 09/12/18 18:18 110 H 20 85 L 09/12/18 16:00 97.2 F L 101 H 18 110/67 92 L 09/12/18 15:17 111 H 18 87 L 09/12/18 14:33 111 H 20 90 L 09/12/18 09:59 115 H 20 95 09/12/18 09:49 116 H 20 92 L 09/12/18 09:00 109 H 20 09/12/18 08:00 109 H 22 152/86 91 L 09/12/18 07:47 102 H 22 89 L 09/12/18 05:50 113 H 22 91 L 09/12/18 05:17 107 H 18 92 L 09/12/18 04:00 97.8 F 103 H 22 147/87 89 L 09/12/18 00:00 97.8 F 97 H 20 111/70 91 L 09/11/18 22:12 99 H 18 92 L 09/11/18 21:58 97 H 18 95 09/11/18 20:30 20 09/11/18 20:00 97.8 F 91 H 20 100/56 96 - General General Appearance: Alert, Oriented x3, Severe distress Limitations: No limitations - Head Head exam: Atraumatic, Normocephalic - Eye Eye exam: Normal appearance, PERRL - ENT ENT exam: Normal exam, Mucous membranes moist Ear exam: Normal external inspection Mouth exam: Normal external inspection Throat exam: Normal inspection. negative: Tonsillar erythema, Tonsillar exudate - Neck Neck exam: Normal inspection, Full ROM. negative: Tenderness - Respiratory Respiratory exam: Decreased breath sounds, Respiratory distress, Rhonchi, Wheezes. negative: Normal lung sounds bilaterally, Accessory muscle use, Prolonged expiratory - Cardiovascular Cardiovascular Exam: Regular rate, Normal rhythm, Normal heart sounds, Tachycardia Peripheral Pulses: 3+: Radial (R), Radial (L), Dorsalis Pedis (R), Dorsalis Pedis (L) - GI/Abdominal GI/Abdominal exam: Soft, Normal bowel sounds. negative: Tenderness - Rectal Rectal exam: Deferred - exam: Deferred - Extremities Extremities exam: Normal inspection, Full ROM, Normal capillary refill. negative: Tenderness - Back Back exam: Reports: Normal inspection - Neurological Neurological exam: Alert, Normal gait. negative: Abnormal gait, Motor sensory deficit - Psychiatric Psychiatric exam: Agitated. negative: Anxious - Skin Skin exam: Dry, Intact, Warm Hospitalization - Hospitalization Admission Diagnosis: 1. Acute R Lower Lobe Pneumonia with Hypoxia. - Problem List/Discharge Diagnosis (1) CAP (community acquired pneumonia) Current Visit: Yes Status: Acute Discharge Diagnosis: Laterality: right Lung location: lower lobe of lung Qualified Code(s): J18.1 - Lobar pneumonia, unspecified organism Base Code: J18.9 - PNEUMONIA, UNSPECIFIED ORGANISM Comment: 09/12/18 -pt has increased need for O2, WBC 15.3->20.5 -procalcitonin 0.097->0.077->2.38 -BC x2 obtained, added Linzolid BID to current rocephin and azith -continue supplementary O2 to maintain sats 92-98% -home ICS/LABA restarted, continue IVP steroids, duo neb txs -repeat CXR tomorrow 1900 per nursing, pt pulled of O2, ambulated to restroom, was hypoxic on return, O2 sat 43%. Pt being placed on Bipap, transfer to [facility] ICU, Dr Woodruff accepting. this is the second and most severe desat pt has had today. [place] 2.38 and ABG reflecting poor oxygen saturation. RLL PNA that has failued outpt tx and inpt tx. 09/11/18 -CXR RLL PNA, failed outpt tx -R[place]pe[place], azithromycin, steroids, alb neb tx -norco for pain, pt was orgininally getting ultram but continued to report uncontrolled pain, MAPS reviewed and pt takes norco 7.5/325 BID at home, treatment continued - supplemental oxygen PRN (2) Fluid overload Current Visit: Yes Status: Acute Base Code: E87.70 - FLUID OVERLOAD, UNSPECIFIED Comment: 09/12/18 -sudden onset shortness of breath, repeat CXR shows fluid over load vs CHF -echo ordered, IVF stopped -Lasix 40mg IVP BID -K 20 mEq BID 1900 Pt having hypoxic event, desating to the 40's. Placed on bipap, no ECHO or cardiology available, transfer to ICU Dr Ranjan Dalton accepting (3) Elevated blood sugar Current Visit: Yes Status: Acute Base Code: R73.9 - HYPERGLYCEMIA, UNSPECIFIED Comment: 09/12/18 -pt has h/o DM previous to gastric bypass surgery, has not had a need for metformin since then -elevated blood sugars with illness and steroid use -low dose s/s insulin added, no metformin r/t current level of infection (4) DVT prophylaxis Current Visit: No Status: Acute Base Code: Z29.9 - ENCOUNTER FOR PROPHYLACTIC MEASURES, UNSPECIFIED Comment: 09/12/18: -Moderate risk this admission due to hospitalization and illness -Encourage ambulation within the room -Lovenox 40mg SQ daily (5) Full code status Current Visit: No Status: Acute Base Code: Z78.9 - OTHER SPECIFIED HEALTH STATUS Comment: 09/12/18: -Patient is a full code this admission - Disposition Pt is desating into the 40%s with mininal activity, placed on Bipap with a recovery of 93% after several minutes. pt then refusing bipap, with ativan given for anxiety r/t bipap, refusing repeat EKG, refusing transfer to ICU. Pt contacted by this provider, explained the danger and seriousness of her current condition, need for cardiology, pulmunology, and diagnositic exams that are not available at this facility. Pt educated on the danger to her health and well being, danger to brain and heart. Pt has accepted transfer at this time. - Hospitalization Course Hospital Course: 43 yo female presents for return visit for CAP RLL. Reporting pain, shortness of breath, fatigue, and continued productive cough. PMH failed outpt tx after d/c last week. 33 year 2ppd smoking history but pt reports that she quit a few days ago. PMH COPD, depression and fibromyalgia. CXR shows RLL PNA, Temp 99.8, HR 127, BP 158/104, RR 40, 85% RA, placed on O2 and increased to 95%. Given alb neb tx and decreased work of breathing Pt started on rocephin and azithrmax IVPB, alb neb tx and steroids IVP. Pt given ultram in ER. CBC 15.3, Hgb 12.6, Hct 41, Plt 434 Na 144, K 3.7, BUN 18, Cr 1.0, GFR >60, Glucose 164, Trop <0.010, proBNP 68, procalcitonin 0.097 09/11/18 Pt resting in bed, no distress but continues to complain about pain and asking about getting her home norco medication. Pt updated that she is getting ultram for her pain with tylenol and that this is on a fixed schedule, as she has been asking all staff that enter the room for more pain medication. Pt does not a ppear in distress, has mild cough but is able to maintain conversation without difficulty. Skin pink warm and dry, moving all extremities. POC continue IVPB rocephin, change azithromax to PO, continue IVP steroids and alb neb tx. Repeat labs in the am Procedures: Imaging and X-Rays 09/11/18 07:26 CHEST 2 VIEWS [RAD] Stat 09/12/18 11:43 CHEST 1 VIEW [RAD] Stat 09/13/18 07:00 CHEST 2 VIEWS [RAD] Stat Cardiology Procedures 09/11/18 07:26 [place] NOW EKG NOW 09/11/18 10:21 [place] .Continuous 09/12/18 12:47 Echo W/CF & Cardiac Doppler NOW Abnormal Labs: Abnormal Lab Results 09/11/18 09/11/18 09/11/18 Range/Units 07:15 07:15 07:15 WBC 15.3 H (4.2-12.2) K/uL Hgb (11.6-16.0) gm/dl Hct (35.0-47.0) % MCH 25.0 L (27-33) pg MCHC 30.7 L (32-36) g/dl RDW 16.4 H (11.5-14.5) % Plt Count 434 H (130-400) K/uL Neutrophils % (47-80) % Band Neutrophils % 7.0 H (0-5) % Lymphocytes 13.0 L (16-45) % pCO2 (35-48) mmHg pO2 (83-108) mmHg Oxyhemoglobin (94-99) % vol ABG O2 Saturation (95-98) % Carboxyhemoglobin (0-1.5) % Methemoglobin (0.0-1.5) % Actual Respiration Rate (10-18) /MIN Creatinine 1.0 H (0.5-0.9) mg/dL POC Glucose (70-110) mg/dL Random Glucose 164 H (74-109) mg/dL Lactic Acid 2.9 H (0.5-2.2) mmol/L Calcium (8.6-10.0) mg/dL Alkaline Phosphatase 149 H (35-104) U/L NT-Pro-B Natriuret Pep (<125) pg/mL Total Protein (6.6-8.7) g/dL Albumin (4.0-5.0) g/dL 09/12/18 09/12/18 09/12/18 Range/Units 06:23 06:23 11:30 WBC 20.5 H* (4.2-12.2) K/uL Hgb 10.1 L (11.6-16.0) gm/dl Hct 33.4 L (35.0-47.0) % MCH 24.8 L (27-33) pg MCHC 30.2 L (32-36) g/dl RDW 16.0 H (11.5-14.5) % Plt Count (130-400) K/uL Neutrophils % 91.0 H (47-80) % Band Neutrophils % (0-5) % Lymphocytes 7.0 L (16-45) % pCO2 (35-48) mmHg pO2 (83-108) mmHg Oxyhemoglobin (94-99) % vol ABG O2 Saturation (95-98) % Carboxyhemoglobin (0-1.5) % Methemoglobin (0.0-1.5) % Actual Respiration Rate (10-18) /MIN Creatinine (0.5-0.9) mg/dL POC Glucose 197 H (70-110) mg/dL Random Glucose 234 H (74-109) mg/dL Lactic Acid (0.5-2.2) mmol/L Calcium 8.4 L (8.6-10.0) mg/dL Alkaline Phosphatase 121 H (35-104) U/L NT-Pro-B Natriuret Pep (<125) pg/mL Total Protein 6.5 L (6.6-8.7) g/dL Albumin 3.5 L (4.0-5.0) g/dL 09/12/18 09/12/18 09/12/18 Range/Units 11:40 11:44 17:00 WBC (4.2-12.2) K/uL Hgb (11.6-16.0) gm/dl Hct (35.0-47.0) % MCH (27-33) pg MCHC (32-36) g/dl RDW (11.5-14.5) % Plt Count (130-400) K/uL Neutrophils % (47-80) % Band Neutrophils % (0-5) % Lymphocytes (16-45) % pCO2 33.7 L (35-48) mmHg pO2 44.0 L (83-108) mmHg Oxyhemoglobin 80.9 L (94-99) % vol ABG O2 Saturation 83.9 L* (95-98) % Carboxyhemoglobin 1.9 H (0-1.5) % Methemoglobin 1.7 H (0.0-1.5) % Actual Respiration Rate 20.0 H (10-18) /MIN Creatinine (0.5-0.9) mg/dL POC Glucose 197 H 284 H (70-110) mg/dL Random Glucose (74-109) mg/dL Lactic Acid (0.5-2.2) mmol/L Calcium (8.6-10.0) mg/dL Alkaline Phosphatase (35-104) U/L NT-Pro-B Natriuret Pep (<125) pg/mL Total Protein (6.6-8.7) g/dL Albumin (4.0-5.0) g/dL 09/12/18 Range/Units Unknown WBC (4.2-12.2) K/uL Hgb (11.6-16.0) gm/dl Hct (35.0-47.0) % MCH (27-33) pg MCHC (32-36) g/dl RDW (11.5-14.5) % Plt Count (130-400) K/uL Neutrophils % (47-80) % Band Neutrophils % (0-5) % Lymphocytes (16-45) % pCO2 (35-48) mmHg pO2 (83-108) mmHg Oxyhemoglobin (94-99) % vol ABG O2 Saturation (95-98) % Carboxyhemoglobin (0-1.5) % Methemoglobin (0.0-1.5) % Actual Respiration Rate (10-18) /MIN Creatinine (0.5-0.9) mg/dL POC Glucose (70-110) mg/dL Random Glucose (74-109) mg/dL Lactic Acid (0.5-2.2) mmol/L Calcium (8.6-10.0) mg/dL Alkaline Phosphatase (35-104) U/L NT-Pro-B Natriuret Pep 713.30 H (<125) pg/mL Total Protein (6.6-8.7) g/dL Albumin (4.0-5.0) g/dL Condition at Discharge: (5) Critical Discharge Medications - Discharge Medications Home Medications: Ambulatory Orders Albuterol Sulfate 0.083% [Neb] [Albuterol Sulfate] 3 ml NEB .EVERY 4-6 HOURS PRN 09/06/14 [Last Taken 09/10/18] Albuterol Sulfate [Proair Hfa] 2 puff INH Q4HR PRN 09/06/14 [Last Taken 09/10/18] Budesonide/Formoterol Fumarate [Symbicort 80-4.5 Mcg Inhaler] 2 puff INH BID 09/06/14 [Last Taken 09/10/18] Buspirone HCl [Buspar] 30 mg PO BID 12/17/16 [Last Taken 09/10/18] Lisinopril/Hydrochlorothiazide [Lisinopril-Hctz 20-12.5 mg Tab] 1 each PO BID 12/17/16 [Last Taken 09/10/18] Olanzapine 5 mg PO DAILY 12/17/16 [Last Taken 09/10/18] Omeprazole 40 mg PO DAILY 12/17/16 [Last Taken 09/10/18] Ondansetron HCl [Zofran] 4 mg PO Q4H PRN 12/17/16 [Last Taken 09/10/18] Fluoxetine HCl 20 mg PO DAILY 08/22/18 [Last Taken 09/10/18] Ipratropium/Albuterol [Duoneb] 3 ml INH RESP.Q4H PRN #20 ampul.neb 08/22/18 [Last Taken 09/10/18] Pregabalin [Lyrica] 150 mg PO BID 08/22/18 [Last Taken 09/10/18] Amlodipine Besylate 5 mg PO DAILY 09/11/18 [Last Taken Unknown] Dicyclomine HCl 10 mg PO WMEALS 09/11/18 [Last Taken Unknown] Hydrocodone/Acetaminophen [[place] 7.5-325 Tablet] 1 each PO BID 09/11/18 [Last Taken Unknown] Amlodipine Besylate [Norvasc] 5 mg PO DAILY tab 09/12/18 [Last Taken Unknown] Azithromycin [Zithromax] 500 mg PO DAILY tab 09/12/18 [Last Taken Unknown] Dicyclomine HCl [Bentyl] 10 mg PO WMEALS cap 09/12/18 [Last Taken Unknown] Fluticasone/Vilanterol 100/25 [Breo Ellipta 100-25 Mcg INH] 1 puff INH DAILY inhaler 09/12/18 [Last Taken Unknown] Hydrocodone/APAP 7.5/325Mg [[place] 7.5MG/325Mg] 1 each PO Q12H PRN tab 09/12/18 [Last Taken Unknown] Ipratropium/Albuterol [Duoneb] 3 ml INH RESP.Q4H.WA ampul.neb 09/12/18 [Last Taken Unknown] Methylprednisolone Sod Succ/Pf [Solu-Medrol] 60 mg IVP DAILY vial 09/12/18 [Las t Taken Unknown] Discharge Plan - Discharge Instructions Quality Measures - Quality Measures Quality Measures: Documentation of Current Medications in Medical Record, Screening for High Blood Pressure and F/U Documented - Current Medications Quality Measure: Measure #130: Documentation of Current Medications Documentation of Current Medications: <Current Medications Documented/Reviewed> [G8427] - Blood Pressure Screening Quality Measure: Screening for High Blood Pressure and Follow-Up Documented Does Patient Have Any of the Following: Active Dx of HTN Blood Pressure Classification: Pre-Hypertensive BP Reading Systolic Measurement: 130 Diastolic Measurement: 83 Screening for High Blood Pressure: Patient Exclusion, Hx of HTN [G9744] - Elder Abuse Suspicion Index EASI Reference Information: Inga VALERO, Arabella C, Werner D, Alexandra Chen.Development and validation of a tool to assist physicians identification of elder abuse: The Elder Abuse Suspicion Index (EASI ). Journal of Elder Abuse and Neglect, 2008; 20 (3): 276-300.
--- NOTE | 2018-09-14 17:43 | RADIOLOGY REPORT ---
EXAM: CHEST 1 VIEW HISTORY: HYPOXIA. DIFFICULTY BREATHING. TECHNIQUE: A single portable AP upright view of the chest was performed. COMPARISON: 09/11/2018. FINDINGS: The heart is normal in size. There has been interval development of mild pulmonary vascular congestion with cephalization pulmonary vessels superiorly. There has been partial clearing of the infiltrate at the right lung base. Minor residual bibasilar atelectasis or infiltrate persists. There is no pneumothorax or visible effusion. The bones appear intact. IMPRESSION: 1. INTERVAL DEVELOPMENT OF MILD PULMONARY VASCULAR CONGESTION SUGGESTING FLUID OVERLOAD/DEVELOPING CHF. 2. PARTIAL CLEARING OF THE FOCAL INFILTRATE AT THE RIGHT LUNG BASE. THERE IS MILD RESIDUAL BIBASILAR ATELECTASIS OR INFILTRATE. J[facility] NUMBER: [id number] [facility]
== END 2018-09-12 20:40 | disposition short-term general hospital (02) | DRG 195 ==
LOC: ER 07:03 → MEDSURG 09:58
PROVIDERS: ADMIT Internal Medicine; ATTEND Internal Medicine
DX: J18.9 Pneumonia, unspecified organism (principal); R09.02 Hypoxemia; E87.70 Fluid overload, unspecified; R73.9 Hyperglycemia, unspecified; R05 Cough; R06.02 Shortness of breath; I10 Essential (primary) hypertension; J44.9 Chronic obstructive pulmonary disease, unspecified; M19.90 Unspecified osteoarthritis, unspecified site; J45.909 Unspecified asthma, uncomplicated; Z87.891 Personal history of nicotine dependence; M79.7 Fibromyalgia
CPT/HCPCS: 83605; 80053; 84145; 84484; 85027; 83880; 71046; 94640 ×2; 93005; 93010; J1885; J2405; J1956; J0696; 36416; 36600; 71045; 82375; 82803; 82948; 87040; 90686; 94010; 94660; 94761; 96365; 96366; 96374; 96375; 99223; 99285; J0456; J1200; J1650; J1940; J2930; J7030; J7050; J7613

== ENCOUNTER 2018-12-08 16:20 | Emergency (ER) | payer MEDICARE, MEDICAID ==
[2018-12-08] MEDS ORDERED: ONDANSETRON 4 MG ODT TABLET SL ONE (17:08)
[2018-12-08] MEDS ORDERED: PREDNISONE 20 MG TAB PO ONE (17:08)
[2018-12-08] MEDS ORDERED: ACETAMINOPHEN 500 MG TABLET PO ONE (17:08)
[2018-12-08] MEDS ORDERED: IPRATROPIUM/ALBUTEROL (0.5MG/3MG) NEB INH ONE (17:09)
--- NOTE | 2018-12-08 17:12 | Emergency Department Record ---
History of Present Illness - General Chief complaint: Flank Pain Stated complaint: BI LAT FLANK PAIN,COUGH,CHEST CONGESTION Time Seen by Provider: 12/08/18 17:02 Source: Patient Mode of Arrival: Ambulatory Limitations: No limitations - History of Present Illness Initial comments: Pt to ED with partner with multiple complaints. Primary is cough with yellow sputum over past few days. No fever. Daily smoker. No vomiting. Uses inhalers at home without relief. No po steroids at present but has used in past. Also bilateral flank pain without urinary pain or frequency. No hematuria. No radiation to buttock or legs. No injury. Onset/Timin -: Days(s) Patient : No Associated Symptoms: Abdominal pain, Nausea/vomiting, Other - Related Data Previous Rx's Medication Instructions Recorded Amlodipine Besylate [Norvasc] 5 mg PO DAILY tab 09/12/18 Dicyclomine HCl [Bentyl] 10 mg PO WMEALS cap 09/12/18 Fluticasone/Vilanterol 100/25 1 puff INH DAILY inhaler 09/12/18 [Breo Ellipta 100-25 Mcg INH] Ipratropium/Albuterol [Duoneb] 3 ml INH RESP.Q4H.WA ampul.neb 09/12/18 Prednisone [Prednisone 20Mg] 40 mg PO DAILY 4 Days #8 tab 12/08/18 Allergies Allergy/AdvReac Type Severity Reaction Status Date / Time levofloxacin [From Levaquin] Allergy ITCHING Verified 12/08/18 17:01 morphine Allergy ITCHING Verified 12/08/18 17:01 haloperidol [From Haldol] AdvReac FATIGUE Verified 12/08/18 17:01 haloperidol lactate AdvReac FATIGUE Verified 12/08/18 17:01 [From Haldol] Travel Screening - Travel/Exposure Within Last 30 Days Have you traveled within the last 30 days?: No - Travel/Exposure Within Last Year Have you traveled outside the [place] in the last year?: No - Additonal Travel Details Have you been exposed to anyone with a communicable illness?: No - Travel Symptoms Symptom Screening: Diarrhea, Vomiting, Stomach Pain Review of Systems Constitutional: Denies: Chills, Fever, Weakness Eyes: Denies: Eye discharge, Photophobia ENT: Denies: Congestion, Throat pain Respiratory: Reports: As per HPI, Cough, Wheezes. Denies: Hemoptysis Cardiovascular: Denies: Arrhythmia, Chest pain, Syncope Endocrine: Denies: Fatigue, Polydipsia, Polyuria Gastrointestinal: Denies: Abdominal pain, Diarrhea, Nausea, Vomiting Genitourinary: Denies: Abnormal menses Musculoskeletal: Reports: As per HPI, Back pain Skin: Denies: Bruising, Rash Neurological: Denies: Confusion, Headache, Numbness Psychiatric: Denies: Anxiety Hematological/Lymphatic: Denies: Anemia Past Medical History - SOCIAL HISTORY Smoking Status: Former smoker Alcohol Use: Occasional Drug Use: Occasional Drug Use Detail:: Marijuana - RESPIRATORY Hx Respiratory Disorders: Yes Hx Asthma: Yes Hx COPD: Yes Hx Pneumonia: Yes - CARDIOVASCULAR Hx Cardio Disorders: Yes Hx Hypertension: Yes - NEURO Hx Neuro Disorders: Yes Hx Headaches: Yes (migraines since age 18) - GI Hx GI Disorders: Yes Hx Reflux: Yes Hx Irritable Bowel: Yes Hx Wt Loss/Wt Gain: No (after bariatric surgery) - Hx Genitourinary Disorders: Yes Hx Bladder Problem: Yes (stress incontinencs) Comment:: hysterectomy - ENDOCRINE Hx Endocrine Disorders: No Hx Diabetes: No Hx Thyroid Disease: No - MUSCULOSKELETAL Hx Musculoskeletal Disorders: Yes Hx Arthritis: Yes Hx Fibromyalgia: Yes - PSYCH Hx Psych Problems: Yes Hx Anxiety: Yes Hx Depression: Yes - HEMATOLOGY/ONCOLOGY Hx Hematology/Oncology Disorders: Yes 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) Hx Blood Transfusions: Yes Hx Blood Transfusion Reaction: No Family Medical History Any Significant Family History?: No Hx Anxiety: Mother Hx Cancer: Mother, Grandparents Hx Depression: Mother Hx Diabetes: Mother, Grandparents Hx Heart Disease: Father, Mother, Grandparents Hx HTN: Father, Mother, Grandparents Hx Stroke: Father, Grandparents Physical Exam - General General Appearance: Alert, Oriented x3, Cooperative, Mild distress - Head Head exam: Atraumatic - Eye Eye exam: Normal appearance, PERRL - ENT ENT exam: Normal exam, Mucous membranes moist, Normal external ear exam, Normal orophraynx, TM's normal bilaterally - Neck Neck exam: Normal inspection, Full ROM. negative: Tenderness - Respiratory Respiratory exam: Decreased breath sounds, Rhonchi, Wheezes. negative: Accessory muscle use, Respiratory distress - Cardiovascular Cardiovascular Exam: Regular rate, Normal rhythm. negative: Tachycardia Peripheral Pulses: 2+: Radial (R), Radial (L) - GI/Abdominal GI/Abdominal exam: Soft, Normal bowel sounds. negative: Distended, Guarding, Tenderness - Extremities Extremities exam: Normal inspection, Full ROM. negative: Tenderness - Back Back exam: Reports: CVA tenderness (R), CVA tenderness (L). Denies: Vertebral tenderness - Neurological Neurological exam: Alert, Normal gait, Oriented X3 - Psychiatric Psychiatric exam: Normal affect, Normal mood - Skin Skin exam: Normal color. negative: Rash Course Vital Signs 12/08/18 16:51 Temperature 99.5 F Pulse Rate 101 H Respiratory 20 Rate Blood Pressure 135/104 Pulse Ox 93 L - Reevaluation(s) Reevaluation #1: 12/08/18 18:02 seen and UA neg for infection. Duoneb improved. Hoem on meds as outlined. STOP SMOKING> Reevaluation #2: 12/08/18 18:10 Pt wants to try home with meds. If worse will return. Pt and partner agree. Disposition Disposition: Discharge Clinical Impression: Bronchitis, COPD (chronic obstructive pulmonary disease), Back pain Disposition: Home, Self-Care Condition: (2) Stable Instructions: Acute Bronchitis (ED), COPD (Chronic Obstructive Pulmonary Disease) (ED) Additional Instructions: Use your inhalers as instructed. Take prednisone and Antibiotic as instructed. Family doctor 1-2 days STOP SMOKING Return as needed. Prescriptions: Prednisone [Prednisone 20Mg] 40 mg PO DAILY 4 Days #8 tab Forms: Patient Portal Access Time of Disposition: 18:10 Quality - Quality Measures Quality Measures: N/A, Adult Bronchitis (18-64yr), Headache (All Ages) - Adult Bronchitis Quality Measure: Measure #116: Avoidance of ABX w/Adult Bronchitis Is patient being admitted: No Avoidance of ABX w/Bronchitis: Medical Reason for prescribing ABX [G9712] Medical Reason For Rx: Chronic bronchitis - Headache: Neuroimaging Quality Measure: Measure #419: Overuse of Neuroimaging ICD10 Codes Entered: Yes Neurological Exam: Patient had a normal neurological exam. [G9535] Headache: Use of Neuroimaging: < CTA, CT, MRA or MRI was NOT ordered > [G9534] - Blood Pressure Screening Does Patient Have Any of the Following: No Blood Pressure Classification: Hypertensive Reading Systolic Measurement: 135 Diastolic Measurement: 104 Screening for High Blood Pressure: < Pre-Hypertensive BP, F/U Documented > [G8950] Pre-Hypertensive Follow-up Interventions: Follow-up with rescreen every year.
[2018-12-08 17:59] LABS: URINE APPEARANCE CLEAR; URINE BILIRUBIN SMALL (NEGATIVE); URINE BLOOD NEGATIVE (NEGATIVE); URINE COLOR YELLOW; URINE GLUCOSE (UA) NEGATIVE (NEGATIVE); URINE KETONE 15 mg/dL (NEGATIVE); URINE LEUKOCYTE ESTERASE NEGATIVE (NEGATIVE); URINE NITRITE NEGATIVE (NEGATIVE); URINE UROBILINOGEN 0.2 E.U./dL (0.20 - 1.00)
[2018-12-08 18:05] LABS: URINE RBC NONE SEEN (NONE SEEN); URINE WBC 0 - 2 (0-2/hpf)
--- NOTE | 2018-12-09 12:42 | RADIOLOGY REPORT ---
EXAM: CHEST, TWO VIEWS HISTORY: COUGH AND WEAKNESS. DIFFICULTY BREATHING FOR THE PAST FIVE DAYS. SMOKER. TECHNIQUE: PA and lateral upright views of the chest were obtained. Comparison: Chest CT dated 11/18/18 and previous chest x-ray dated 09/12/18. FINDINGS: The heart, mediastinum, and pulmonary vasculature are normal. There are new patchy bilateral pulmonary infiltrates. These are greatest within the right mid and lower lung woods. Minor patchy infiltrates are also present within the left mid and lower lung woods. The appearance suggests developing bilateral pneumonia. There is no pneumothorax or visible effusion. The bones appear intact. IMPRESSION: DEVELOPING PATCHY BILATERAL PULMONARY INFILTRATES, RIGHT GREATER THAN LEFT. THE APPEARANCE IS SUSPICIOUS FOR DEVELOPING PNEUMONIA. JOB NUMBER: [id number] [facility]
== END 2018-12-08 18:25 | disposition home or self-care (01) ==
LOC: ER 16:20
DX: J44.1 Chronic obstructive pulmonary disease with (acute) exacerbation (principal); J20.9 Acute bronchitis, unspecified; J44.0 Chronic obstructive pulmonary disease with (acute) lower respiratory infection
CPT/HCPCS: 99284 ×2; 81001; 71046; 94640; J7512

== ENCOUNTER 2018-12-27 10:49 | Emergency (ER) | payer MEDICARE, MEDICAID ==
[2018-12-27] MEDS ORDERED: ONDANSETRON HCL IV 4 MG/2 ML VIAL IVP ONE (11:13)
[2018-12-27] MEDS ORDERED: 0.9 % SODIUM CHLORIDE 1,000 ML BAG IV ONE (11:13)
[2018-12-27] MEDS ORDERED: KETOROLAC 30 MG/ML VIAL IVP ONE (11:13)
--- NOTE | 2018-12-27 11:25 | Emergency Department Record ---
History of Present Illness - General Chief Complaint: Wound, check Stated Complaint: HERNIA SURGERY COMPLICATIONS Time Seen by Provider: 12/27/18 10:51 Source: Patient Mode of arrival: Ambulatory Limitations: No limitations - History of Present Illness Initial Comments: 43 yo female presents with local umbilical pain and drainage. She reports 10 days ago she had umbilical hernia surgery at [facility]. The symptoms started 2-3 days ago. No fever. She has had nausea and vomiting. No diarrhea. No significant swelling or spreading redness. She is out of her [place]. Her surgeon was Dr Stewart at [facility]. Onset/Timin -: Days(s) Initial Visit For: Other Returns Today for: Wound recheck Symptoms Since Prior Visit: Worsening discharge, Worsening pain - Related Data Previous Rx's Medication Instructions Recorded Amlodipine Besylate [Norvasc] 5 mg PO DAILY tab 09/12/18 Dicyclomine HCl [Bentyl] 10 mg PO WMEALS cap 09/12/18 Fluticasone/Vilanterol 100/25 1 puff INH DAILY inhaler 09/12/18 [Breo Ellipta 100-25 Mcg INH] Ipratropium/Albuterol [Duoneb] 3 ml INH RESP.Q4H.WA ampul.neb 09/12/18 Amoxicillin/Potassium Clav 1 each PO BID #14 tablet 12/27/18 [Augmentin 875-125 Tablet] Allergies Allergy/AdvReac Type Severity Reaction Status Date / Time levofloxacin [From Levaquin] Allergy ITCHING Verified 12/27/18 10:57 morphine Allergy ITCHING Verified 12/27/18 10:57 haloperidol [From Haldol] AdvReac FATIGUE Verified 12/27/18 10:57 haloperidol lactate AdvReac FATIGUE Verified 12/27/18 10:57 [From Haldol] Travel Screening - Travel/Exposure Within Last 30 Days Have you traveled within the last 30 days?: No - Travel/Exposure Within Last Year Have you traveled outside the [place] in the last year?: No - Additonal Travel Details Have you been exposed to anyone with a communicable illness?: No - Travel Symptoms Symptom Screening: None Review of Systems Constitutional: Denies: Chills, Fever, Malaise, Weakness Eyes: Denies: Eye discharge ENT: Denies: Congestion, Throat pain Respiratory: Denies: Cough, Dyspnea, Wheezes Cardiovascular: Denies: Chest pain, Palpitations, Syncope Endocrine: Denies: Fatigue, Polydipsia, Polyuria Gastrointestinal: Reports: Abdominal pain, Nausea, Vomiting. Denies: Diarrhea Genitourinary: Denies: Dysuria, Urgency Musculoskeletal: Denies: Arthralgia, Back pain, Myalgia Skin: Denies: Bruising, Change in color, Rash Neurological: Denies: Headache Psychiatric: Denies: Anxiety Hematological/Lymphatic: Denies: Easy bleeding, Easy bruising Past Medical History - SOCIAL HISTORY Smoking Status: Current every day smoker Alcohol Use: Occasional Drug Use: None - RESPIRATORY Hx Respiratory Disorders: Yes Hx Asthma: Yes Hx COPD: Yes Hx Pneumonia: Yes - CARDIOVASCULAR Hx Cardio Disorders: Yes Hx Hypertension: Yes - NEURO Hx Neuro Disorders: Yes Hx Headaches: Yes (migraines since age 18) - GI Hx GI Disorders: Yes Hx Reflux: Yes Hx Irritable Bowel: Yes Hx Wt Loss/Wt Gain: No (after bariatric surgery) - Hx Genitourinary Disorders: Yes Hx Bladder Problem: Yes (stress incontinencs) Comment:: hysterectomy - ENDOCRINE Hx Endocrine Disorders: No Hx Diabetes: No Hx Thyroid Disease: No - MUSCULOSKELETAL Hx Musculoskeletal Disorders: Yes Hx Arthritis: Yes Hx Fibromyalgia: Yes - PSYCH Hx Psych Problems: Yes Hx Anxiety: Yes Hx Depression: Yes - HEMATOLOGY/ONCOLOGY Hx Hematology/Oncology Disorders: Yes 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 negative: Conjunctival injection, Scleral icterus - ENT ENT exam: Normal exam, Mucous membranes moist Ear exam: Normal external inspection Nasal Exam: Normal inspection Mouth exam: Normal external inspection - Neck Neck exam: Normal inspection - Respiratory Respiratory exam: Normal lung sounds bilaterally. negative: Respiratory distress - Cardiovascular Cardiovascular Exam: Regular rate, Normal rhythm, Normal heart sounds - GI/Abdominal GI/Abdominal exam: Soft, Tenderness (very soft non tender abdomen, local tenderness with a thin rim of erythema at the umbilicus, small amount of purulence, no swelling or obvious abscess). negative: Distended, Guarding, Rebound, Rigid - Rectal Rectal exam: Deferred - exam: Deferred - Extremities Extremities exam: Normal inspection - Back Back exam: Denies: CVA tenderness (R), CVA tenderness (L) - Neurological Neurological exam: Alert, Oriented X3 - Psychiatric Psychiatric exam: Normal affect, Normal mood. negative: Agitated, Anxious - Skin Skin exam: Dry, Intact, Normal color, Warm Course Vital Signs 12/27/18 11:00 Temperature 98.7 F Pulse Rate 107 H Respiratory 16 Rate Blood Pressure 149/114 Pulse Ox 98 - Reevaluation(s) Reevaluation #1: 12/27/18 12:11 The CBC was reviewed No acute changes. Chronic stable anemia. 12/27/18 12:24 Normal renal function Awaiting CT scan 12/27/18 13:30 CT scan demonstrates abnormal fluid at the surgery site, non encapsulated, non drainable, may represent a phlegmon, cellulitis vs hematoma. No air in the tissue. Can not rule out a developing abscess. The patient's surgeon will be contacted. 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 We discussed the labs, examination and CT. He recommends antibiotics and follow up on Saturday for a recheck in the office. 12/27/18 13:[address] A copy of the CT was sent with the patient We discussed the home care for the weekend, reasons to go directly to [facility] to be seen if worse and otherwise follow up on Saturday. She will call the office in the morning to be seen. Medical Decision Making - Lab Data Result diagrams: 12/27/18 12:01 12/27/18 12:01 Disposition Disposition: Discharge Clinical Impression: Cellulitis Qualifiers: Site of cellulitis: unspecified site Qualified Code(s): L03.90 - Cellulitis, unspecified Disposition: Home, Self-Care Condition: (1) Good Instructions: Wound Infection (ED) Additional Instructions: Call your doctor for the next available follow up appointment this week to recheck the surgical site on Saturday Review this ER visit and the tests performed with your surgeon Call your surgeon or be seen in the ER for a recheck if worse, any new concerns or questions Take the prescriptions provided as directed Prescriptions: Amoxicillin/Potassium Clav [Augmentin 875-125 Tablet] 1 each PO BID #14 tablet Forms: Patient Portal Access Time of Disposition: 13:43 Quality - Quality Measures Quality Measures: N/A - Blood Pressure Screening Does Patient Have Any of the Following: No Blood Pressure Classification: Hypertensive Reading Systolic Measurement: 149 Diastolic Measurement: 114 Screening for High Blood Pressure: < Pre-Hypertensive BP, F/U Documented > [ G8950] Pre-Hypertensive Follow-up Interventions: Referral to alternative/primary care provider.
[2018-12-27 12:05] LABS: ABSOLUTE NEUTROPHIL COUNT 4.66; BASO % 0.5 % (0-6); EOS % 0.9 % (0-6); GRAN % 59.8 % (47-80); HEMATOCRIT 36.6 % (35.0-47.0); HEMOGLOBIN 11.3 gm/dl (11.6-16.0); LYMPH % 31.9 % (16-45); MEAN CELL VOLUME 78.4 fl (81-97); MEAN CORPUSCULAR HGB CONC 30.9 g/dl (32-36); MEAN PLATELET VOLUME 10.5 fl (7.4-10.4); MONO % 6.9 % (0-9); PLATELET COUNT 324 K/uL (130-400); RED BLOOD COUNT 4.67 M/uL (3.80-5.40); WHITE BLOOD COUNT W/O DIFF 7.8 K/uL (4.2-12.2)
[2018-12-27 12:06] LABS: MEAN CORPUSCULAR HEMOGLOBIN 24.1 pg (27-33)
[2018-12-27 12:13] LABS: BLOOD UREA NITROGEN 6 mg/dL (6-20); CREATININE 0.7 mg/dL (0.5-0.9); EST GLOMERULAR FILTRATION RATE > 60 mL/min
[2018-12-27 12:15] LABS: GLUCOSE,RANDOM 96 mg/dL (74-109)
[2018-12-27] MEDS ORDERED: ACETAMINOPHEN 1,000 MG/100 ML BTL IVPB ONE (12:26)
[2018-12-27] MEDS ORDERED: HYDROCODONE/APAP 5/325MG TABLET PO ONE (13:41)
[2018-12-27] MEDS ORDERED: AMOXICILLIN/POTASSIUM CLAV 875MG/125MG TABLET PO ONE (13:41)
--- NOTE | 2018-12-29 08:36 | CT SCAN REPORT ---
EXAM: CT OF THE ABDOMEN AND PELVIS HISTORY: ABDOMINAL PAIN, UMBILICAL HERNIA SURGERY TEN DAYS AGO. INFECTED AREA AROUND THE BELLY BUTTON. TECHNIQUE: CT of the abdomen and pelvis was performed following intravenous contrast administration. Type and amount of contrast are recorded in the medial record. Comparison: CT abdomen and pelvis 07/09/14. FINDINGS: The lung bases are unremarkable. There has been prior gastric surgery. The liver and spleen are unremarkable. The gallbladder is surgically absent. There are no dilated bowel loops. The pancreas is unremarkable. There is no adrenal lesion. There is bilateral renal function. There is no renal mass or hydronephrosis. There is no aortic aneurysm. No periaortic mass or adenopathy identified. There are no dilated bowel loops. There is no pelvic mass, abscess, or adenopathy. There is no free air or free fluid identified. There are post surgical changes in the umbilical region. There is a fluid identified in the subcutaneous fat. This measures approximately 5.5 x 3.1 cm in size and extends from the anterior aspect of the rectus muscle to the skin surface. This has somewhat irregular margins and no well defined capsule is seen. No air bubbles identified. There is no lytic or blastic bone lesion. IMPRESSION: 1. ABNORMAL LOW DENSITY IN THE ANTERIOR ABDOMINAL WALL AT THE LEVEL OF THE UMBILICUS. THIS HAS SOMEWHAT INDISTINCT MARGINS AND MAY JUST REPRESENT POST SURGICAL CHANGE, CELLULITIS, AND/OR NONSPECIFIC EDEMA. NO WELL DEFINED ABSCESS IS SEEN, BUT A DEVELOPING ABSCESS IS CERTAINLY A CONCERN. 2. OTHER CHRONIC FINDINGS ABOVE. JOB NUMBER: [id number] [facility]
== END 2018-12-27 14:19 | disposition home or self-care (01) ==
LOC: ER 10:49
DX: T81.49XA Infection following a procedure, other surgical site, initial encounter (principal); L03.311 Cellulitis of abdominal wall; R11.2 Nausea with vomiting, unspecified; I10 Essential (primary) hypertension; J44.9 Chronic obstructive pulmonary disease, unspecified; D53.9 Nutritional anemia, unspecified; F17.210 Nicotine dependence, cigarettes, uncomplicated
CPT/HCPCS: 99284 ×2; 96365; 96375; 96361; 85025; 80048; 74177; Q9967; J1885; J2405; J7030

== ENCOUNTER 2019-04-18 13:31 | Emergency (ER) | payer MEDICARE, MEDICAID ==
[2019-04-18] MEDS ORDERED: ACETAMINOPHEN 325 MG TAB PO ONE (14:19)
--- NOTE | 2019-04-18 14:22 | Emergency Department Record ---
History of Present Illness - General Chief complaint: Extremity Problem Stated complaint: RT HAND PAIN Time Seen by Provider: 04/18/19 14:02 Source: Patient Mode of Arrival: Ambulatory Limitations: No limitations - History of Present Illness Initial comments: The patient is here due to R hand pain for 2 days. She woke up with the pain and denies any trauma or injury. The pain is mainly over the R hand 5th MC bone at the Hypothenar area. The patient also denies any numbness or weakness but is having pain with ROM. MD Complaint: Extremity pain Onset/Timin -: Days(s) Location: Right Radiation: None Severity scale (1-10): 7 Quality: Sharp, Other Consistency: Constant Improves with: Other Worsens with: Other Associated Symptoms: Denies other symptoms - Related Data Previous Rx's Medication Instructions Recorded Dicyclomine HCl [Bentyl] 10 mg PO WMEALS cap 09/12/18 Fluticasone/Vilanterol 100/25 1 puff INH DAILY inhaler 09/12/18 [Breo Ellipta 100-25 Mcg INH] Ipratropium/Albuterol [Duoneb] 3 ml INH RESP.Q4H.WA ampul.neb 09/12/18 Naproxen [Naprosyn] 250 mg PO BID #14 tablet 04/18/19 Allergies Allergy/AdvReac Type Severity Reaction Status Date / Time levofloxacin [From Levaquin] Allergy ITCHING Verified 04/18/19 14:09 morphine Allergy ITCHING Verified 04/18/19 14:09 haloperidol [From Haldol] AdvReac FATIGUE Verified 04/18/19 14:09 haloperidol lactate AdvReac FATIGUE Verified 04/18/19 14:09 [From Haldol] Travel Screening - Travel/Exposure Within Last 30 Days Have you traveled within the last 30 days?: No - Travel/Exposure Within Last Year Have you traveled outside the [place] in the last year?: No - Additonal Travel Details Have you been exposed to anyone with a communicable illness?: No - Travel Symptoms Symptom Screening: None Review of Systems Constitutional: Denies: Chills, Fever Past Medical History - SOCIAL HISTORY Smoking Status: Current every day smoker - RESPIRATORY Hx Respiratory Disorders: Yes Hx Asthma: Yes Hx COPD: Yes Hx Pneumonia: Yes - CARDIOVASCULAR Hx Cardio Disorders: Yes Hx Hypertension: Yes - NEURO Hx Neuro Disorders: Yes Hx Headaches: Yes (migraines since age 18) - GI Hx GI Disorders: Yes Hx Reflux: Yes Hx Irritable Bowel: Yes Hx Wt Loss/Wt Gain: No (after bariatric surgery) - Hx Genitourinary Disorders: Yes Hx Bladder Problem: Yes (stress incontinencs) Comment:: hysterectomy - ENDOCRINE Hx Endocrine Disorders: No Hx Diabetes: No Hx Thyroid Disease: No - MUSCULOSKELETAL Hx Musculoskeletal Disorders: Yes Hx Arthritis: Yes Hx Fibromyalgia: Yes - PSYCH Hx Psych Problems: Yes Hx Anxiety: Yes Hx Depression: Yes - HEMATOLOGY/ONCOLOGY Hx Hematology/Oncology Disorders: Yes 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) Hx Blood Transfusions: Yes Hx Blood Transfusion Reaction: No Family Medical History Any Significant Family History?: Yes Hx Anxiety: Mother Hx Cancer: Mother, Grandparents Hx Depression: Mother Hx Diabetes: Mother, Grandparents Hx Heart Disease: Father, Mother, Grandparents Hx HTN: Father, Mother, Grandparents Hx Stroke: Father, Grandparents Physical Exam - General General Appearance: Alert, Cooperative, No acute distress - Head Head exam: Atraumatic - Eye Eye exam: Normal appearance - Extremities Extremities exam: Normal inspection (There is no R hand swelling, bruising, or erythema.), Full ROM (with pain on full ROM of the 4th and 5th fingers.), Tenderness (There is mild tenderness over the R 5th MC bone diffusely.). negative: Joint swelling Image of Hand: 1 - Area of pain and tenderness. No swelling, bruising, or erythema is appreciated. - Neurological Neurological exam: Alert, Normal gait. negative: Abnormal gait, Motor sensory deficit Course Vital Signs 04/18/19 14:02 Temperature 98.7 F Pulse Rate 82 Respiratory 17 Rate Blood Pressure 134/106 Pulse Ox 98 - Reevaluation(s) Reevaluation #1: I did discuss the neg xray with the patient and the need for F/U. She is to continue to ice the area and she is to see her PCP next week for recheck if not better. 04/18/19 15:02 Medical Decision Making - Data Complexity MDM Data: X-Ray Ordered and/or Reviewed - Radiology Data Radiology results: Report reviewed (R hand: Neg) Disposition Disposition: Discharge Clinical Impression: Hand pain, right Disposition: Home, Self-Care Condition: (2) Stable Instructions: Hand Sprain (ED) Additional Instructions: Please add the Naprosyn to your home medicines and use ice to the painful area. Please see your doctor next week if not better in 2 days. Prescriptions: Naproxen [Naprosyn] 250 mg PO BID #14 tablet Forms: Patient Portal Access Time of Disposition: 15:01 Quality - Quality Measures Quality Measures: Headache (All Ages) - Headache: Neuroimaging Quality Measure: Measure #419: Overuse of Neuroimaging ICD10 Codes Entered: Yes View Detail: Yes Neurological Exam: Patient had a normal neurological exam. [G9535] Headache: Use of Neuroimaging: < CTA, CT, MRA or MRI was NOT ordered > [G9534] - Blood Pressure Screening View Details: Yes Does Patient Have Any of the Following: Active Dx of HTN Blood Pressure Classification: Hypertensive Reading Systolic Measurement: 134 Diastolic Measurement: 106 Screening for High Blood Pressure: Patient Exclusion, Hx of HTN [G9744]
[2019-04-18] MEDS ORDERED: KETOROLAC 30 MG/ML VIAL IM ONE (14:41)
--- NOTE | 2019-04-18 14:57 | RADIOLOGY REPORT ---
EXAMINATION: Right Hand, Minimum Three Views EXAM DATE: 04/18/2019 2:34 PM TECHNIQUE: PA, lateral, and oblique INDICATION: pain to 5th MC COMPARISON: None ENCOUNTER: Initial FINDINGS: There is no acute fracture or dislocation involving the right hand. The joint spaces are not signific antly narrowed. IMPRESSION: Negative right hand examination. Dictated by: Joe Dorsey MD on 04/18/2019 2:54 PM. .
--- NOTE | 2019-04-18 15:06 | Emergency Department Record ---
History of Present Illness - General Chief complaint: Extremity Problem Stated complaint: RT HAND PAIN Time Seen by Provider: 04/18/19 14:02 Source: Patient Mode of Arrival: Ambulatory Limitations: No limitations - History of Present Illness Onset/Timin -: Days(s) Location: Right Radiation: None Severity scale (1-10): 7 Quality: Sharp, Other Consistency: Constant Improves with: Other Worsens with: Other Associated Symptoms: Denies other symptoms - Related Data Previous Rx's Medication Instructions Recorded Dicyclomine HCl [Bentyl] 10 mg PO WMEALS cap 09/12/18 Fluticasone/Vilanterol 100/25 1 puff INH DAILY inhaler 09/12/18 [Breo Ellipta 100-25 Mcg INH] Ipratropium/Albuterol [Duoneb] 3 ml INH RESP.[id number].WA ampul.neb 09/12/18 Naproxen [Naprosyn] 250 mg PO BID #14 tablet 04/18/19 Allergies Allergy/AdvReac Type Severity Reaction Status Date / Time levofloxacin [From Levaquin] Allergy ITCHING Verified 04/18/19 14:09 morphine Allergy ITCHING Verified 04/18/19 14:09 haloperidol [From Haldol] AdvReac FATIGUE Verified 04/18/19 14:09 haloperidol lactate AdvReac FATIGUE Verified 04/18/19 14:09 [From Haldol] Travel Screening - Travel/Exposure Within Last 30 Days Have you traveled within the last 30 days?: No - Travel/Exposure Within Last Year Have you traveled outside the [place] in the last year?: No - Additonal Travel Details Have you been exposed to anyone with a communicable illness?: No - Travel Symptoms Symptom Screening: None Review of Systems Constitutional: Denies: Chills, Fever Past Medical History - SOCIAL HISTORY Smoking Status: Current every day smoker - RESPIRATORY Hx Respiratory Disorders: Yes Hx Asthma: Yes Hx COPD: Yes Hx Pneumonia: Yes - CARDIOVASCULAR Hx Cardio Disorders: Yes Hx Hypertension: Yes - NEURO Hx Neuro Disorders: Yes Hx Headaches: Yes (migraines since age 18) - GI Hx GI Disorders: Yes Hx Reflux: Yes Hx Irritable Bowel: Yes Hx Wt Loss/Wt Gain: No (after bariatric surgery) - Hx Genitourinary Disorders: Yes Hx Bladder Problem: Yes (stress incontinencs) Comment:: hysterectomy - ENDOCRINE Hx Endocrine Disorders: No Hx Diabetes: No Hx Thyroid Disease: No - MUSCULOSKELETAL Hx Musculoskeletal Disorders: Yes Hx Arthritis: Yes Hx Fibromyalgia: Yes - PSYCH Hx Psych Problems: Yes Hx Anxiety: Yes Hx Depression: Yes - HEMATOLOGY/ONCOLOGY Hx Hematology/Oncology Disorders: Yes 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) Hx Blood Transfusions: Yes Hx Blood Transfusion Reaction: No Family Medical History Any Significant Family History?: Yes Hx Anxiety: Mother Hx Cancer: Mother, Grandparents Hx Depression: Mother Hx Diabetes: Mother, Grandparents Hx Heart Disease: Father, Mother, Grandparents Hx HTN: Father, Mother, Grandparents Hx Stroke: Father, Grandparents Physical Exam - General Limitations: No limitations Course Vital Signs 04/18/19 14:02 Temperature 98.7 F Pulse Rate 82 Respiratory 17 Rate Blood Pressure 134/106 Pulse Ox 98 - Reevaluation(s) Reevaluation #1: I initially did prescribe Naprosyn for pain for the patient for home. I did not realize she has had bariatric surgery so I did tell her to NOT take the Naprosyn and NOT fill the script. The patient fully understands and will NOT take the Naprosyn. She is only to take [place] or Tylenol. 04/18/19 15:05 Disposition Clinical Impression: Hand pain, right Disposition: Home, Self-Care Condition: (2) Stable Instructions: Hand Sprain (ED) Additional Instructions: Please take your home [place] for pain OR Tylenol. Please see your family doctor for recheck next week if not better. Prescriptions: Naproxen [Naprosyn] 250 mg PO BID #14 tablet Forms: Patient Portal Access Quality - Quality Measures Quality Measures: Headache (All Ages) - Headache: Neuroimaging Quality Measure: Measure #419: Overuse of Neuroimaging ICD10 Codes Entered: Yes View Detail: Yes Neurological Exam: Patient had a normal neurological exam. [G9535] Headache: Use of Neuroimaging: < CTA, CT, MRA or MRI was NOT ordered > [G9534] - Blood Pressure Screening View Details: Yes Does Patient Have Any of the Following: Active Dx of HTN Blood Pressure Classification: Hypertensive Reading Systolic Measurement: 134 Diastolic Measurement: 106 Screening for High Blood Pressure: Patient Exclusion, Hx of HTN [G9744]
== END 2019-04-18 15:13 | disposition home or self-care (01) ==
LOC: ER 13:31
DX: M79.641 Pain in right hand (principal); F17.210 Nicotine dependence, cigarettes, uncomplicated; I10 Essential (primary) hypertension; Z98.84 Bariatric surgery status
CPT/HCPCS: 99284 ×2; 96372; 73130; J1885